=== PATIENT | female | born 1935 | race African-American/Black ===

== ENCOUNTER 2017-11-04 16:28 | Inpatient (IN) | payer MEDICARE ==
[2017-11-04] MEDS ORDERED: Ondansetron ODT 4 MG TAB PO PRN (19:41)
[2017-11-04] MEDS ORDERED: Bisacodyl 5 MG TAB PO PRN (19:41)
[2017-11-04] MEDS ORDERED: Senokot 8.6 MG TAB PO PRN (19:41)
[2017-11-04] MEDS ORDERED: Albuterol Sulfate 1.25 MG/3 ML NEB NEB PRN (19:44)
[2017-11-04] MEDS: Docusate 100 MG CAP PO SCH (22:07)
[2017-11-04] MEDS: Latanoprost 0.005% Ophth Soln 2.5 ml Bottle EA EYE SCH (22:07)
[2017-11-04] MEDS: Amlodipine 5 MG TAB PO SCH (22:08)
[2017-11-04] MEDS: Famotidine 20 MG TAB PO SCH (22:08)
[2017-11-04] MEDS: Atorvastatin Calcium 10 MG TAB PO SCH (22:08)
[2017-11-04] MEDS: Primidone 50 MG TAB PO SCH (22:09)
[2017-11-05 02:26] LABS: Bilirubin Negative (Negative); Blood, Urine Large (Negative); Clarity Slightly Cloudy (Clear); Glucose, Urine (Dipstick) Negative (Negative); Leukocyte Small (Negative); Nitrite Negative (Negative); Protein, Urine (Dipstick) 30 mg/dL (Neg-Trace); Urobilinogen 0.2 mg/dL (0.2-1.0)
[2017-11-05 02:31] LABS: RBC/HPF 21-50 HPF (0-3)
[2017-11-05 02:32] LABS: Bacteria/HPF 2+ HPF (None Seen); Squamous Epithelial None Seen HPF (0-3)
[2017-11-05 05:39] LABS: Hemoglobin 8.1 g/dL (12.0-16.0); Platelet Count 332 thou/uL (130-400)
[2017-11-05] MEDS ORDERED: Enoxaparin Sodium 40 MG/0.4 ML SYRINGE SC SCH (09:00)
[2017-11-05] MEDS: Furosemide 40 MG TAB PO SCH (09:27)
[2017-11-05] MEDS: Docusate 100 MG CAP PO SCH ×2 (09:27→20:49)
[2017-11-05] MEDS: Primidone 50 MG TAB PO SCH ×3 (09:28→20:52)
[2017-11-05] MEDS: Allopurinol 100 MG TAB PO SCH (09:28)
[2017-11-05] MEDS: Carvedilol 25 MG TAB PO SCH ×2 (09:29→18:42)
[2017-11-05] MEDS: DULoxetine 30 MG CAP PO SCH (09:29)
[2017-11-05] MEDS: Folic Acid 1 MG TAB PO SCH (09:29)
[2017-11-05] MEDS: Aspirin 325 mg Enteric Coated Tablet PO SCH (09:29)
[2017-11-05] MEDS: Famotidine 20 MG TAB PO SCH ×2 (09:29→20:50)
[2017-11-05] MEDS: Cyanocobalamin (Vitamin B-12) 1,000 MCG TAB PO SCH (09:29)
[2017-11-05 12:08] LABS: Iron 51 ug/dL (50-170); Iron Binding Capacity, Total 156 mcg/dL (265-497)
[2017-11-05 12:10] LABS: Reticulocyte Count 6.5 % (0.5-1.5)
[2017-11-05] MEDS: Atorvastatin Calcium 10 MG TAB PO SCH (20:50)
[2017-11-05] MEDS: Latanoprost 0.005% Ophth Soln 2.5 ml Bottle EA EYE SCH (20:51)
[2017-11-05] MEDS: Amlodipine 5 MG TAB PO SCH (20:51)
[2017-11-06 06:07] LABS: Hemoglobin 8.2 g/dL (12.0-16.0); Platelet Count 316 thou/uL (130-400)
--- NOTE | 2017-11-06 09:08 | RAD ---
PORTABLE CHEST 1 VIEW: Date: 11/06/17 Time: 0749 hours HISTORY: Pneumonia. FINDINGS/IMPRESSION: Comparison made with exam of 10/22/17. The heart size is enlarged. Left-sided upper extremity PICC line has been placed. Feeding tube has be en removed in the interim. Bibasilar infiltrates are noted. No pneumothoraces or large effusions are seen. There are postop changes of right rotator cuff repair. POS: [facility]
[2017-11-06] MEDS: Ferrous Sulfate 325 MG TAB PO SCH (09:27)
[2017-11-06] MEDS: DULoxetine 30 MG CAP PO SCH (09:27)
[2017-11-06] MEDS: Carvedilol 25 MG TAB PO SCH ×2 (09:31→18:39)
[2017-11-06] MEDS: Docusate 100 MG CAP PO SCH ×2 (09:32→21:10)
[2017-11-06] MEDS: Famotidine 20 MG TAB PO SCH ×2 (09:32→21:18)
[2017-11-06] MEDS: Cyanocobalamin (Vitamin B-12) 1,000 MCG TAB PO SCH (09:32)
[2017-11-06] MEDS: Allopurinol 100 MG TAB PO SCH (09:32)
[2017-11-06] MEDS: Aspirin 325 mg Enteric Coated Tablet PO SCH (09:32)
[2017-11-06] MEDS: Furosemide 40 MG TAB PO SCH (09:32)
[2017-11-06] MEDS: Folic Acid 1 MG TAB PO SCH (09:32)
[2017-11-06] MEDS: Enoxaparin Sodium 40 MG/0.4 ML SYRINGE SC SCH ×2 (10:33→11:53)
[2017-11-06] MEDS ORDERED: Minoxidil 2.5 MG TAB PO SCH (11:00)
[2017-11-06] MEDS: Atorvastatin Calcium 10 MG TAB PO SCH (21:10)
[2017-11-06] MEDS: Amlodipine 5 MG TAB PO SCH (21:10)
[2017-11-06] MEDS: Latanoprost 0.005% Ophth Soln 2.5 ml Bottle EA EYE SCH (21:18)
[2017-11-07] MEDS ORDERED: Enoxaparin Sodium 40 MG/0.4 ML SYRINGE SC SCH (09:00)
[2017-11-07] MEDS ORDERED: Enoxaparin Sodium 100 MG/ML SYRINGE SC SCH (09:00)
[2017-11-07] MEDS: Famotidine 20 MG TAB PO SCH ×2 (10:01→21:21)
[2017-11-07] MEDS: Allopurinol 100 MG TAB PO SCH (10:02)
[2017-11-07] MEDS: Furosemide 40 MG TAB PO SCH (10:02)
[2017-11-07] MEDS: Aspirin 325 mg Enteric Coated Tablet PO SCH (10:02)
[2017-11-07] MEDS: Minoxidil 2.5 MG TAB PO SCH (10:03)
[2017-11-07] MEDS: Ferrous Sulfate 325 MG TAB PO SCH (10:03)
[2017-11-07] MEDS: DULoxetine 30 MG CAP PO SCH (10:04)
[2017-11-07] MEDS: Cyanocobalamin (Vitamin B-12) 1,000 MCG TAB PO SCH (10:04)
[2017-11-07] MEDS: Carvedilol 25 MG TAB PO SCH ×2 (10:05→17:50)
[2017-11-07] MEDS: Docusate 100 MG CAP PO SCH ×2 (10:05→21:20)
[2017-11-07] MEDS: Folic Acid 1 MG TAB PO SCH (10:05)
[2017-11-07] MEDS: cloNIDine 0.1 MG TAB PO PRN (17:50)
[2017-11-07] MEDS: Amlodipine 5 MG TAB PO SCH (21:20)
[2017-11-07] MEDS: Acetaminophen 325 MG TAB PO PRN (21:20)
[2017-11-07] MEDS: Latanoprost 0.005% Ophth Soln 2.5 ml Bottle EA EYE SCH (21:21)
[2017-11-07] MEDS: Atorvastatin Calcium 10 MG TAB PO SCH (21:21)
[2017-11-08 06:22] LABS: Hemoglobin 8.3 g/dL (12.0-16.0); Platelet Count 304 thou/uL (130-400)
[2017-11-08] MEDS: Allopurinol 100 MG TAB PO SCH (08:16)
[2017-11-08] MEDS: Acetaminophen 325 MG TAB PO PRN (08:16)
[2017-11-08] MEDS: Cyanocobalamin (Vitamin B-12) 1,000 MCG TAB PO SCH (08:17)
[2017-11-08] MEDS: Ferrous Sulfate 325 MG TAB PO SCH (08:17)
[2017-11-08] MEDS: Aspirin 325 mg Enteric Coated Tablet PO SCH (08:17)
[2017-11-08] MEDS: Folic Acid 1 MG TAB PO SCH (08:18)
[2017-11-08] MEDS: Minoxidil 2.5 MG TAB PO SCH (08:18)
[2017-11-08] MEDS: Famotidine 20 MG TAB PO SCH ×2 (08:18→20:40)
[2017-11-08] MEDS: Furosemide 40 MG TAB PO SCH (08:18)
[2017-11-08] MEDS: DULoxetine 30 MG CAP PO SCH (08:19)
[2017-11-08] MEDS: Docusate 100 MG CAP PO SCH ×2 (08:19→20:40)
[2017-11-08] MEDS: Enoxaparin Sodium 100 MG/ML SYRINGE SC SCH (08:23)
[2017-11-08] MEDS: Carvedilol 25 MG TAB PO SCH ×2 (08:27→17:51)
[2017-11-08] MEDS: Atorvastatin Calcium 10 MG TAB PO SCH (20:40)
[2017-11-08] MEDS: Amlodipine 5 MG TAB PO SCH (20:40)
[2017-11-08] MEDS: Latanoprost 0.005% Ophth Soln 2.5 ml Bottle EA EYE SCH (20:44)
[2017-11-09] MEDS: Aspirin 325 mg Enteric Coated Tablet PO SCH (07:50)
[2017-11-09] MEDS: Docusate 100 MG CAP PO SCH ×2 (07:50→20:58)
[2017-11-09] MEDS: Folic Acid 1 MG TAB PO SCH (07:51)
[2017-11-09] MEDS: Allopurinol 100 MG TAB PO SCH (07:51)
[2017-11-09] MEDS: Ferrous Sulfate 325 MG TAB PO SCH (07:51)
[2017-11-09] MEDS: Cyanocobalamin (Vitamin B-12) 1,000 MCG TAB PO SCH (07:51)
[2017-11-09] MEDS: DULoxetine 30 MG CAP PO SCH (07:52)
[2017-11-09] MEDS: Minoxidil 2.5 MG TAB PO SCH (07:53)
[2017-11-09] MEDS: Enoxaparin Sodium 100 MG/ML SYRINGE SC SCH (07:53)
[2017-11-09] MEDS: Carvedilol 25 MG TAB PO SCH ×2 (07:53→18:03)
[2017-11-09] MEDS: Furosemide 40 MG TAB PO SCH (07:53)
[2017-11-09] MEDS: Famotidine 20 MG TAB PO SCH ×2 (07:53→20:58)
[2017-11-09] MEDS: Latanoprost 0.005% Ophth Soln 2.5 ml Bottle EA EYE SCH (20:53)
[2017-11-09] MEDS: Amlodipine 5 MG TAB PO SCH (20:54)
[2017-11-09] MEDS: Atorvastatin Calcium 10 MG TAB PO SCH (20:58)
[2017-11-10 06:22] LABS: #Basophils 0.1 thou/uL (0.0-0.2); #Eosinphils 0.2 thou/uL (0.0-0.7); #Lymphocytes 1.8 thou/uL (1.20-3.40); #Monocytes 0.6 thou/uL (0.11-0.59); #Neutrophils 3.2 thou/uL (1.40-6.50); %Basophils 2.5 % (0.0-1.0); %Eosinophils 2.5 % (0.0-10.0); %Lymphocytes 30.3 % (21.0-51.0); %Monocytes 9.9 % (0.0-10.0); %Neutrophils 54.8 % (42.0-75.0); Hemoglobin 8.6 g/dL (12.0-16.0); Mean Corpuscular HGB CONC 31.4 g/dL (32.0-36.0); Mean Corpuscular Hemoglobin 32.8 pg (27.0-31.0); Mean Platelet Volume 5.9 fL (7.4-10.4); Platelet Count 231 thou/uL (130-400); RBC Distribution Width 16.7 % (11.5-14.5); Red Blood Cell (RBC) Count 2.61 mill/uL (4.20-5.40); White Blood Cell (WBC) Count 5.9 thou/uL (4.8-10.8)
[2017-11-10 06:33] LABS: ALT (SGPT) 22 U/L (8-55); AST (SGOT) 23 U/L (5-34); Albumin 2.6 g/dL (3.4-4.8); Alkaline Phosphatase 118 U/L (40-150); Anion Gap 14 mmol/L (10-20); BUN (Urea Nitrogen) 17 mg/dL (9.8-20.1); Bilirubin, Total 0.3 mg/dL (0.2-1.2); Calc. Creatinine Clearance 64 mL/min (70-130); Calcium 9.2 mg/dL (7.8-10.44); Carbon Dioxide 30 mmol/L (23-31); Chloride 101 mmol/L (98-107); Estimated GFR-MDRD 50; Glucose 96 mg/dL (83-110); Protein, Total 5.6 g/dL (6.0-8.3); Sodium 141 mmol/L (136-145)
[2017-11-10] MEDS: Allopurinol 100 MG TAB PO SCH (09:07)
[2017-11-10] MEDS: Docusate 100 MG CAP PO SCH ×2 (09:07→22:29)
[2017-11-10] MEDS: Carvedilol 25 MG TAB PO SCH ×2 (09:08→17:46)
[2017-11-10] MEDS: Famotidine 20 MG TAB PO SCH ×2 (09:08→22:34)
[2017-11-10] MEDS: Ferrous Sulfate 325 MG TAB PO SCH (09:08)
[2017-11-10] MEDS: Aspirin 325 mg Enteric Coated Tablet PO SCH (09:08)
[2017-11-10] MEDS: Cyanocobalamin (Vitamin B-12) 1,000 MCG TAB PO SCH (09:08)
[2017-11-10] MEDS: Minoxidil 2.5 MG TAB PO SCH (09:08)
[2017-11-10] MEDS: DULoxetine 30 MG CAP PO SCH (09:08)
[2017-11-10] MEDS: Furosemide 40 MG TAB PO SCH (09:09)
[2017-11-10] MEDS: Enoxaparin Sodium 100 MG/ML SYRINGE SC SCH (09:09)
[2017-11-10] MEDS: Folic Acid 1 MG TAB PO SCH (09:09)
--- NOTE | 2017-11-10 11:06 | RAD ---
CHEST 1 VIEW: Date: 11/10/17 HISTORY: Pneumonia. COMPARISON: Chest 1 view dated 11/06/17. FINDINGS: Mild interval improvement of the lower lobe air space opacities. Central venous catheter tip is uncha nged and in good position. No pneumothorax. Suture anchor present in right humeral head. IMPRESSION: Improving air space opacities. POS: [facility]
[2017-11-10] MEDS: Amlodipine 5 MG TAB PO SCH (22:29)
[2017-11-10] MEDS: Latanoprost 0.005% Ophth Soln 2.5 ml Bottle EA EYE SCH (22:34)
[2017-11-10] MEDS: Atorvastatin Calcium 10 MG TAB PO SCH (22:34)
[2017-11-11] MEDS: cloNIDine 0.1 MG TAB PO PRN (06:29)
[2017-11-11] MEDS: Enoxaparin Sodium 100 MG/ML SYRINGE SC SCH (08:42)
[2017-11-11] MEDS: Ferrous Sulfate 325 MG TAB PO SCH (08:46)
[2017-11-11] MEDS: Docusate 100 MG CAP PO SCH ×2 (08:47→20:32)
[2017-11-11] MEDS: Aspirin 325 mg Enteric Coated Tablet PO SCH (08:47)
[2017-11-11] MEDS: Carvedilol 25 MG TAB PO SCH ×2 (08:47→17:01)
[2017-11-11] MEDS: DULoxetine 30 MG CAP PO SCH (08:47)
[2017-11-11] MEDS: Allopurinol 100 MG TAB PO SCH (08:48)
[2017-11-11] MEDS: Cyanocobalamin (Vitamin B-12) 1,000 MCG TAB PO SCH (08:48)
[2017-11-11] MEDS: Folic Acid 1 MG TAB PO SCH (08:49)
[2017-11-11] MEDS: Famotidine 20 MG TAB PO SCH ×2 (08:49→20:32)
[2017-11-11] MEDS: Minoxidil 2.5 MG TAB PO SCH (08:49)
[2017-11-11] MEDS: Furosemide 40 MG TAB PO SCH (08:49)
[2017-11-11] MEDS: Acetaminophen 325 MG TAB PO PRN (08:53)
[2017-11-11] MEDS: Latanoprost 0.005% Ophth Soln 2.5 ml Bottle EA EYE SCH (20:32)
[2017-11-11] MEDS: Atorvastatin Calcium 10 MG TAB PO SCH (20:32)
[2017-11-11] MEDS: Amlodipine 5 MG TAB PO SCH (20:32)
--- NOTE | 2017-11-11 22:25 | HP ---
DATE OF ADMISSION: 11/04/2017 REASON FOR TRANSFER: To [facility] was due to deconditioning with recent meta bolic encephalopathy. BRIEF SUMMARY OF HISTORY AND PHYSICAL: The patient is an 82-year-old white female who was initially admitted on 10/03/2017 to [facility] with decreased ability to ambulate, recur rent falls and confusion with dysarthria, slurred speech, and incoherence. In the emergency room, an initial CT scan, as well as further workup including MRI, did not show any acute findings. The kike ent had a labile and difficult to control hypertension, is concerned that she may have had a TIA, but during her hospital stay, she continued to progress with generalized diffuse weakness. Neurology co nsult was obtained and she was deemed to have encephalopathy, likely metabolic in nature, possibly re lated to an increased dose of primidone for tremors. Primidone was discontinued. The patient had a very poor p.o. intake and a Dobhoff tube was placed. There was a question about a urinary tract infe ction and/or pneumonia. She was initially treated for these illnesses empirically, but then stopped when she appeared to have no signs of infection. By the time the patient was stable enough to be dis charged from the hospital, she was extremely weak, unable to get out of bed, and very poor p.o. intak e. It was deemed appropriate to transfer her to [facility] for physical thera py and occupational therapy and increase her p.o. intake. PAST MEDICAL HISTORY: 1. Recurrent urinary tract infections. Currently, she has a Escamilla catheter in place due to her watson mbulatory status. 2. Essential tremor. 3. Fibromyalgia. 4. Osteoarthritis. 5. Morbid obesity. 6. Hypertension. 7. History of sleep apnea. The patient has refused CPAP machine. 8. History of progressive renal insufficiency. 9. History of progressive deconditioning. 10. History of prior cerebrovascular accident. PAST SURGICAL HISTORY: Hysterectomy, cholecystectomy, bilateral knee replacements, right shoulder larsen rgery. For full history and physical, see recent history and physical on her recent admission. REVIEW OF SYSTEMS: At this time, the patient reports some increase in her appetite. Her confusion h as significantly improved. She denies any true depression. No significant cough reported. She does report shortness of breath with activity, but not at rest, no URI-like symptoms. No visual changes. The patient reports some occasional nausea and upset stomach without emesis, nor diarrhea. She rep orts her bowel movements have been normal. The patient reports diffuse edema of her extremities sinc e her hospitalization. No ulcers, no lesions reported by the patient. PHYSICAL EXAMINATION: VITAL SIGNS: Blood pressure is 162/68, respiratory rate was 16, pulse was 82. HEENT: Oropharynx, mucous membranes were moist. NECK: Obese, supple. CHEST: Had some faint rhonchi at the bases bilaterally. HEART: Regular rate and rhythm without occasional ectopic beats. ABDOMEN: Obese, but soft. Bowel sounds hypoactive but present in all 4 quadrants. No masses were p alpated. EXTREMITIES: Showed diffuse edema of the hands and feet bilaterally. A PICC line was in place in th e left arm. ASSESSMENT AND PLAN: 1. Severe deconditioning. The patient had a 1-month hospitalization, has been nonambulatory during that time. We will start on deep venous thrombosis prophylaxis with both mechanical as well as pharm acotherapy with Lovenox due to a high risk for deep venous thrombosis. We will start the patient wit h physical therapy and occupational therapy. She will likely need a prolonged stay due to her severe deconditioning. 2. Congestive heart failure. The patient had an echocardiogram with recent hospitalization with an ejection fraction of 55% with diastolic dysfunction. She also had a workup for possible renal artery stenosis which showed no obvious significant renal artery stenosis. We will treat her with continue d Lasix as previously prescribed and follow her daily weights. 3. Hypertension. She had a history of labile hypertension. We will continue her on current medicat ions plus clonidine for p.r.n. elevated blood pressure. 4. Poor appetite. The patient apparently is improving in her appetite. We will add high-calorie sh akes as needed. 5. DISPOSITION: The patient will likely need several weeks of therapy [facility] due to her morbid obesity. At this time, we will keep the Escamilla catheter in place and may disconti nue once she is more ambulatory.
[2017-11-12] MEDS: Enoxaparin Sodium 100 MG/ML SYRINGE SC SCH (08:17)
[2017-11-12] MEDS: Cyanocobalamin (Vitamin B-12) 1,000 MCG TAB PO SCH (08:21)
[2017-11-12] MEDS: Ferrous Sulfate 325 MG TAB PO SCH (08:21)
[2017-11-12] MEDS: Docusate 100 MG CAP PO SCH ×2 (08:21→21:13)
[2017-11-12] MEDS: Carvedilol 25 MG TAB PO SCH ×2 (08:21→16:49)
[2017-11-12] MEDS: Allopurinol 100 MG TAB PO SCH (08:22)
[2017-11-12] MEDS: Aspirin 325 mg Enteric Coated Tablet PO SCH (08:22)
[2017-11-12] MEDS: Folic Acid 1 MG TAB PO SCH (08:23)
[2017-11-12] MEDS: Famotidine 20 MG TAB PO SCH ×2 (08:23→21:12)
[2017-11-12] MEDS: Minoxidil 2.5 MG TAB PO SCH (08:23)
[2017-11-12] MEDS: DULoxetine 30 MG CAP PO SCH (08:24)
[2017-11-12] MEDS: Furosemide 40 MG TAB PO SCH (08:24)
[2017-11-12 09:27] LABS: Hemoglobin 9.5 g/dL (12.0-16.0); Platelet Count 219 thou/uL (130-400)
[2017-11-12] MEDS: Atorvastatin Calcium 10 MG TAB PO SCH (21:12)
[2017-11-12] MEDS: Latanoprost 0.005% Ophth Soln 2.5 ml Bottle EA EYE SCH (21:15)
[2017-11-12] MEDS: Amlodipine 5 MG TAB PO SCH (22:19)
[2017-11-13] MEDS: Enoxaparin Sodium 100 MG/ML SYRINGE SC SCH (09:19)
[2017-11-13] MEDS: DULoxetine 30 MG CAP PO SCH (09:24)
[2017-11-13] MEDS: Allopurinol 100 MG TAB PO SCH (09:25)
[2017-11-13] MEDS: Docusate 100 MG CAP PO SCH ×2 (09:25→21:14)
[2017-11-13] MEDS: Ferrous Sulfate 325 MG TAB PO SCH (09:25)
[2017-11-13] MEDS: Cyanocobalamin (Vitamin B-12) 1,000 MCG TAB PO SCH (09:26)
[2017-11-13] MEDS: Furosemide 40 MG TAB PO SCH (09:26)
[2017-11-13] MEDS: Aspirin 325 mg Enteric Coated Tablet PO SCH (09:26)
[2017-11-13] MEDS: Minoxidil 2.5 MG TAB PO SCH (09:26)
[2017-11-13] MEDS: Folic Acid 1 MG TAB PO SCH (09:27)
[2017-11-13] MEDS: Carvedilol 25 MG TAB PO SCH ×2 (09:27→16:50)
[2017-11-13] MEDS: Famotidine 20 MG TAB PO SCH ×2 (09:27→21:14)
[2017-11-13] MEDS: Acetaminophen 325 MG TAB PO PRN (13:32)
[2017-11-13] MEDS: Atorvastatin Calcium 10 MG TAB PO SCH (21:13)
[2017-11-13] MEDS: Amlodipine 5 MG TAB PO SCH (21:13)
[2017-11-13] MEDS: Latanoprost 0.005% Ophth Soln 2.5 ml Bottle EA EYE SCH (21:14)
[2017-11-14 05:17] LABS: Hemoglobin 8.8 g/dL (12.0-16.0); Platelet Count 51 thou/uL (130-400)
[2017-11-14 05:58] LABS: Platelet Count 137 thou/uL (130-400)
[2017-11-14] MEDS: Cyanocobalamin (Vitamin B-12) 1,000 MCG TAB PO SCH (10:01)
[2017-11-14] MEDS: Ferrous Sulfate 325 MG TAB PO SCH (10:01)
[2017-11-14] MEDS: Acetaminophen 325 MG TAB PO PRN ×2 (10:02→13:54)
[2017-11-14] MEDS: Allopurinol 100 MG TAB PO SCH (10:02)
[2017-11-14] MEDS: Docusate 100 MG CAP PO SCH ×2 (10:02→21:55)
[2017-11-14] MEDS: Folic Acid 1 MG TAB PO SCH (10:02)
[2017-11-14] MEDS: Famotidine 20 MG TAB PO SCH ×2 (10:02→21:54)
[2017-11-14] MEDS: Carvedilol 25 MG TAB PO SCH ×2 (10:02→17:47)
[2017-11-14] MEDS: Enoxaparin Sodium 100 MG/ML SYRINGE SC SCH (10:03)
[2017-11-14] MEDS: Aspirin 325 mg Enteric Coated Tablet PO SCH (10:03)
[2017-11-14] MEDS: Minoxidil 2.5 MG TAB PO SCH (10:03)
[2017-11-14] MEDS: DULoxetine 30 MG CAP PO SCH (10:03)
[2017-11-14] MEDS: Furosemide 40 MG TAB PO SCH (10:03)
[2017-11-14] MEDS ORDERED: Enoxaparin Sodium 100 MG/ML SYRINGE SC SCH (12:37)
[2017-11-14] MEDS: Vancomycin HCl 500 MG in Sodium Chloride 0.9% 100 ML IVPB SCH (13:26)
[2017-11-14] MEDS: Vancomycin HCl 750 MG in Sodium Chloride 0.9% 250 ML 250 ML IVPB SCH (13:26)
[2017-11-14] MEDS: traMADol HCl 50 MG TAB PO PRN (17:46)
[2017-11-14] MEDS ORDERED: Vancomycin HCl 1.25 GM in Sodium Chloride 0.9% 250 ML 250 ML IVPB SCH (21:00)
[2017-11-14] MEDS: Latanoprost 0.005% Ophth Soln 2.5 ml Bottle EA EYE SCH (21:54)
[2017-11-14] MEDS: Atorvastatin Calcium 10 MG TAB PO SCH (21:55)
[2017-11-14] MEDS: Amlodipine 5 MG TAB PO SCH (22:00)
[2017-11-15] MEDS: Vancomycin HCl 500 MG in Sodium Chloride 0.9% 100 ML IVPB SCH ×2 (01:07→13:23)
[2017-11-15] MEDS: Vancomycin HCl 750 MG in Sodium Chloride 0.9% 250 ML 250 ML IVPB SCH ×2 (01:08→13:23)
[2017-11-15] MEDS ORDERED: Furosemide 40 MG/4 ML VIAL ONE (09:23)
[2017-11-15] MEDS ORDERED: Furosemide 40 MG/4 ML VIAL SLOW IVP SCH (09:30)
[2017-11-15] MEDS: Furosemide 40 MG TAB PO SCH (09:42)
[2017-11-15] MEDS: Floranex Packet PO SCH (09:42)
[2017-11-15] MEDS: Folic Acid 1 MG TAB PO SCH (09:43)
[2017-11-15] MEDS: Aspirin 325 mg Enteric Coated Tablet PO SCH (09:43)
[2017-11-15] MEDS: Cyanocobalamin (Vitamin B-12) 1,000 MCG TAB PO SCH (09:43)
[2017-11-15] MEDS: DULoxetine 30 MG CAP PO SCH (09:44)
[2017-11-15] MEDS: Minoxidil 2.5 MG TAB PO SCH (09:44)
[2017-11-15] MEDS: Famotidine 20 MG TAB PO SCH ×2 (09:44→20:38)
[2017-11-15] MEDS: Allopurinol 100 MG TAB PO SCH (09:44)
[2017-11-15] MEDS: Ferrous Sulfate 325 MG TAB PO SCH (09:44)
[2017-11-15] MEDS: Carvedilol 25 MG TAB PO SCH ×2 (09:44→17:45)
[2017-11-15] MEDS: Docusate 100 MG CAP PO SCH ×2 (09:44→20:37)
[2017-11-15] MEDS: Acetaminophen 325 MG TAB PO PRN (09:49)
[2017-11-15] MEDS: Enoxaparin Sodium 40 MG/0.4 ML SYRINGE SC SCH (09:49)
[2017-11-15] MEDS: Amlodipine 5 MG TAB PO SCH (20:38)
[2017-11-15] MEDS: Atorvastatin Calcium 10 MG TAB PO SCH (20:38)
[2017-11-15] MEDS: Latanoprost 0.005% Ophth Soln 2.5 ml Bottle EA EYE SCH (20:39)
[2017-11-16] MEDS ORDERED: Vancomycin HCl 750 MG VIAL ONE (01:57)
[2017-11-16] MEDS: Vancomycin HCl 500 MG in Sodium Chloride 0.9% 100 ML IVPB SCH (02:05)
[2017-11-16] MEDS: Vancomycin HCl 750 MG in Sodium Chloride 0.9% 250 ML 250 ML IVPB SCH (02:06)
[2017-11-16 05:23] LABS: Platelet Count 154 thou/uL (130-400)
[2017-11-16] MEDS ORDERED: Furosemide 40 MG TAB PO SCH (09:00)
[2017-11-16] MEDS ORDERED: Furosemide 40 MG/4 ML VIAL SLOW IVP SCH (09:45)
[2017-11-16] MEDS: Floranex Packet PO SCH (10:30)
[2017-11-16] MEDS: DULoxetine 30 MG CAP PO SCH (10:30)
[2017-11-16] MEDS: Allopurinol 100 MG TAB PO SCH (10:30)
[2017-11-16] MEDS: Cyanocobalamin (Vitamin B-12) 1,000 MCG TAB PO SCH (10:30)
[2017-11-16] MEDS: Minoxidil 2.5 MG TAB PO SCH (10:31)
[2017-11-16] MEDS: Famotidine 20 MG TAB PO SCH ×2 (10:31→21:34)
[2017-11-16] MEDS: Acetaminophen 325 MG TAB PO PRN (10:31)
[2017-11-16] MEDS: Ferrous Sulfate 325 MG TAB PO SCH (10:32)
[2017-11-16] MEDS: Aspirin 325 mg Enteric Coated Tablet PO SCH (10:32)
[2017-11-16] MEDS: Docusate 100 MG CAP PO SCH ×2 (10:32→21:35)
[2017-11-16] MEDS: Folic Acid 1 MG TAB PO SCH (10:32)
[2017-11-16] MEDS: Enoxaparin Sodium 40 MG/0.4 ML SYRINGE SC SCH (10:32)
[2017-11-16] MEDS: Carvedilol 25 MG TAB PO SCH ×2 (10:32→17:18)
[2017-11-16] MEDS ORDERED: Vancomycin HCl 750 MG in Sodium Chloride 0.9% 250 ML 250 ML IVPB SCH (13:00)
[2017-11-16] MEDS ORDERED: Vancomycin HCl 1 GM in Sodium Chloride 0.9% 250 ML 250 ML IVPB SCH (14:00)
[2017-11-16] MEDS: Latanoprost 0.005% Ophth Soln 2.5 ml Bottle EA EYE SCH (21:34)
[2017-11-16] MEDS: Atorvastatin Calcium 10 MG TAB PO SCH (21:35)
[2017-11-16] MEDS: Amlodipine 5 MG TAB PO SCH (21:44)
[2017-11-17] MEDS ORDERED: Furosemide 40 MG TAB PO SCH ×2 (09:00→12:45)
[2017-11-17] MEDS: DULoxetine 30 MG CAP PO SCH (09:14)
[2017-11-17] MEDS: Enoxaparin Sodium 40 MG/0.4 ML SYRINGE SC SCH (09:14)
[2017-11-17] MEDS: Minoxidil 2.5 MG TAB PO SCH (09:14)
[2017-11-17] MEDS: Aspirin 325 mg Enteric Coated Tablet PO SCH (09:15)
[2017-11-17] MEDS: Allopurinol 100 MG TAB PO SCH (09:15)
[2017-11-17] MEDS: Cyanocobalamin (Vitamin B-12) 1,000 MCG TAB PO SCH (09:15)
[2017-11-17] MEDS: Ferrous Sulfate 325 MG TAB PO SCH (09:15)
[2017-11-17] MEDS: Docusate 100 MG CAP PO SCH ×2 (09:15→20:18)
[2017-11-17] MEDS: Folic Acid 1 MG TAB PO SCH (09:15)
[2017-11-17] MEDS: Famotidine 20 MG TAB PO SCH ×2 (09:16→20:18)
[2017-11-17] MEDS: Carvedilol 25 MG TAB PO SCH ×2 (09:16→18:03)
[2017-11-17] MEDS: Floranex Packet PO SCH (09:16)
[2017-11-17] MEDS ORDERED: Bisacodyl 10 MG SUPP PR PRN (13:33)
[2017-11-17] MEDS ORDERED: Milk Of Magnesia 30 ML UDCUP PO PRN (13:34)
[2017-11-17] MEDS: Latanoprost 0.005% Ophth Soln 2.5 ml Bottle EA EYE SCH (20:17)
[2017-11-17] MEDS: Amlodipine 5 MG TAB PO SCH (20:18)
[2017-11-17] MEDS: Atorvastatin Calcium 10 MG TAB PO SCH (20:18)
[2017-11-18 05:24] LABS: Hemoglobin 8.2 g/dL (12.0-16.0); Platelet Count 163 thou/uL (130-400)
[2017-11-18] MEDS: Cyanocobalamin (Vitamin B-12) 1,000 MCG TAB PO SCH (10:03)
[2017-11-18] MEDS: Carvedilol 25 MG TAB PO SCH ×2 (10:03→17:47)
[2017-11-18] MEDS: traMADol HCl 50 MG TAB PO PRN (10:04)
[2017-11-18] MEDS: Aspirin 325 mg Enteric Coated Tablet PO SCH (10:04)
[2017-11-18] MEDS: Allopurinol 100 MG TAB PO SCH (10:04)
[2017-11-18] MEDS: Ferrous Sulfate 325 MG TAB PO SCH (10:05)
[2017-11-18] MEDS: DULoxetine 30 MG CAP PO SCH (10:05)
[2017-11-18] MEDS: Docusate 100 MG CAP PO SCH ×2 (10:05→21:46)
[2017-11-18] MEDS: Famotidine 20 MG TAB PO SCH ×2 (10:05→21:46)
[2017-11-18] MEDS: Furosemide 40 MG TAB PO SCH (10:05)
[2017-11-18] MEDS: Folic Acid 1 MG TAB PO SCH (10:05)
[2017-11-18] MEDS: Minoxidil 2.5 MG TAB PO SCH (10:06)
[2017-11-18] MEDS: Floranex Packet PO SCH (10:06)
[2017-11-18] MEDS: Enoxaparin Sodium 40 MG/0.4 ML SYRINGE SC SCH (10:17)
[2017-11-18] MEDS: Atorvastatin Calcium 10 MG TAB PO SCH (21:46)
[2017-11-18] MEDS: Latanoprost 0.005% Ophth Soln 2.5 ml Bottle EA EYE SCH (21:46)
[2017-11-18] MEDS: Amlodipine 5 MG TAB PO SCH (21:46)
[2017-11-19] MEDS: Enoxaparin Sodium 40 MG/0.4 ML SYRINGE SC SCH (09:44)
[2017-11-19] MEDS: Floranex Packet PO SCH (09:45)
[2017-11-19] MEDS: Furosemide 40 MG TAB PO SCH (09:46)
[2017-11-19] MEDS: Aspirin 325 mg Enteric Coated Tablet PO SCH (09:47)
[2017-11-19] MEDS: Docusate 100 MG CAP PO SCH ×2 (09:47→22:02)
[2017-11-19] MEDS: Allopurinol 100 MG TAB PO SCH (09:47)
[2017-11-19] MEDS: DULoxetine 30 MG CAP PO SCH (09:47)
[2017-11-19] MEDS: Carvedilol 25 MG TAB PO SCH ×2 (09:48→17:30)
[2017-11-19] MEDS: Ferrous Sulfate 325 MG TAB PO SCH (09:48)
[2017-11-19] MEDS: Cyanocobalamin (Vitamin B-12) 1,000 MCG TAB PO SCH (09:48)
[2017-11-19] MEDS: Famotidine 20 MG TAB PO SCH ×2 (09:48→22:02)
[2017-11-19] MEDS: Folic Acid 1 MG TAB PO SCH (09:48)
[2017-11-19] MEDS: Minoxidil 2.5 MG TAB PO SCH (09:48)
[2017-11-19] MEDS: Latanoprost 0.005% Ophth Soln 2.5 ml Bottle EA EYE SCH (22:01)
[2017-11-19] MEDS: Amlodipine 5 MG TAB PO SCH (22:02)
[2017-11-19] MEDS: Atorvastatin Calcium 10 MG TAB PO SCH (22:02)
[2017-11-20 07:23] LABS: Hemoglobin 8.7 g/dL (12.0-16.0); Platelet Count 193 thou/uL (130-400)
[2017-11-20] MEDS: Folic Acid 1 MG TAB PO SCH (08:19)
[2017-11-20] MEDS: Docusate 100 MG CAP PO SCH ×2 (08:19→20:23)
[2017-11-20] MEDS: Enoxaparin Sodium 40 MG/0.4 ML SYRINGE SC SCH (08:19)
[2017-11-20] MEDS: DULoxetine 30 MG CAP PO SCH (08:19)
[2017-11-20] MEDS: Famotidine 20 MG TAB PO SCH ×2 (08:20→20:23)
[2017-11-20] MEDS: Furosemide 40 MG TAB PO SCH (08:20)
[2017-11-20] MEDS: Ferrous Sulfate 325 MG TAB PO SCH (08:20)
[2017-11-20] MEDS: Allopurinol 100 MG TAB PO SCH (08:20)
[2017-11-20] MEDS: Carvedilol 25 MG TAB PO SCH ×2 (08:21→17:51)
[2017-11-20] MEDS: Minoxidil 2.5 MG TAB PO SCH (08:21)
[2017-11-20] MEDS: Floranex Packet PO SCH (08:21)
[2017-11-20] MEDS: Cyanocobalamin (Vitamin B-12) 1,000 MCG TAB PO SCH (08:21)
[2017-11-20] MEDS: Aspirin 325 mg Enteric Coated Tablet PO SCH (08:21)
[2017-11-20] MEDS: traMADol HCl 50 MG TAB PO PRN (09:30)
[2017-11-20] MEDS: Latanoprost 0.005% Ophth Soln 2.5 ml Bottle EA EYE SCH (20:22)
[2017-11-20] MEDS: Amlodipine 5 MG TAB PO SCH (20:22)
[2017-11-20] MEDS: Atorvastatin Calcium 10 MG TAB PO SCH (20:23)
[2017-11-21] MEDS: Cyanocobalamin (Vitamin B-12) 1,000 MCG TAB PO SCH (09:55)
[2017-11-21] MEDS: Famotidine 20 MG TAB PO SCH ×2 (09:56→21:08)
[2017-11-21] MEDS: Furosemide 40 MG TAB PO SCH (09:56)
[2017-11-21] MEDS: Allopurinol 100 MG TAB PO SCH (09:56)
[2017-11-21] MEDS: DULoxetine 30 MG CAP PO SCH (09:57)
[2017-11-21] MEDS: Docusate 100 MG CAP PO SCH ×2 (09:58→21:08)
[2017-11-21] MEDS: Ferrous Sulfate 325 MG TAB PO SCH (09:58)
[2017-11-21] MEDS: Folic Acid 1 MG TAB PO SCH (09:58)
[2017-11-21] MEDS: Aspirin 325 mg Enteric Coated Tablet PO SCH (09:58)
[2017-11-21] MEDS: Carvedilol 25 MG TAB PO SCH ×2 (09:59→18:23)
[2017-11-21] MEDS: Floranex Packet PO SCH (09:59)
[2017-11-21] MEDS: Minoxidil 2.5 MG TAB PO SCH (09:59)
[2017-11-21] MEDS: Enoxaparin Sodium 40 MG/0.4 ML SYRINGE SC SCH (10:00)
[2017-11-21] MEDS: traMADol HCl 50 MG TAB PO PRN (11:21)
[2017-11-21] MEDS: Amlodipine 5 MG TAB PO SCH (21:07)
[2017-11-21] MEDS: Atorvastatin Calcium 10 MG TAB PO SCH (21:08)
[2017-11-21] MEDS: Latanoprost 0.005% Ophth Soln 2.5 ml Bottle EA EYE SCH (21:08)
[2017-11-22 06:32] LABS: Hemoglobin 8.5 g/dL (12.0-16.0); Platelet Count 208 thou/uL (130-400)
[2017-11-22] MEDS: Furosemide 40 MG TAB PO SCH (08:59)
[2017-11-22] MEDS: Folic Acid 1 MG TAB PO SCH (09:00)
[2017-11-22] MEDS: Aspirin 325 mg Enteric Coated Tablet PO SCH (09:00)
[2017-11-22] MEDS: Famotidine 20 MG TAB PO SCH ×2 (09:00→22:48)
[2017-11-22] MEDS: Ferrous Sulfate 325 MG TAB PO SCH (09:00)
[2017-11-22] MEDS: Allopurinol 100 MG TAB PO SCH (09:01)
[2017-11-22] MEDS: Carvedilol 25 MG TAB PO SCH ×2 (09:01→16:37)
[2017-11-22] MEDS: DULoxetine 30 MG CAP PO SCH (09:01)
[2017-11-22] MEDS: Docusate 100 MG CAP PO SCH ×2 (09:02→22:48)
[2017-11-22] MEDS: Cyanocobalamin (Vitamin B-12) 1,000 MCG TAB PO SCH (09:02)
[2017-11-22] MEDS: Minoxidil 2.5 MG TAB PO SCH (09:02)
[2017-11-22] MEDS: Floranex Packet PO SCH (09:02)
[2017-11-22] MEDS: Enoxaparin Sodium 40 MG/0.4 ML SYRINGE SC SCH (09:03)
[2017-11-22] MEDS: Latanoprost 0.005% Ophth Soln 2.5 ml Bottle EA EYE SCH (22:46)
[2017-11-22] MEDS: Amlodipine 5 MG TAB PO SCH (22:47)
[2017-11-22] MEDS: Atorvastatin Calcium 10 MG TAB PO SCH (22:47)
[2017-11-23] MEDS: Furosemide 40 MG TAB PO SCH (08:10)
[2017-11-23] MEDS: Allopurinol 100 MG TAB PO SCH (08:11)
[2017-11-23] MEDS: DULoxetine 30 MG CAP PO SCH (08:11)
[2017-11-23] MEDS: Docusate 100 MG CAP PO SCH ×2 (08:11→21:38)
[2017-11-23] MEDS: Famotidine 20 MG TAB PO SCH ×2 (08:11→21:39)
[2017-11-23] MEDS: Folic Acid 1 MG TAB PO SCH (08:12)
[2017-11-23] MEDS: Carvedilol 25 MG TAB PO SCH ×2 (08:12→16:44)
[2017-11-23] MEDS: Aspirin 325 mg Enteric Coated Tablet PO SCH (08:12)
[2017-11-23] MEDS: Floranex Packet PO SCH (08:12)
[2017-11-23] MEDS: Minoxidil 2.5 MG TAB PO SCH (08:12)
[2017-11-23] MEDS: Cyanocobalamin (Vitamin B-12) 1,000 MCG TAB PO SCH (08:12)
[2017-11-23] MEDS: Ferrous Sulfate 325 MG TAB PO SCH (08:12)
[2017-11-23] MEDS: Enoxaparin Sodium 40 MG/0.4 ML SYRINGE SC SCH (08:25)
[2017-11-23] MEDS: traMADol HCl 50 MG TAB PO PRN ×2 (08:33→14:06)
[2017-11-23] MEDS ORDERED: Furosemide 40 MG TAB PO SCH (12:30)
[2017-11-23] MEDS: Amlodipine 5 MG TAB PO SCH (21:39)
[2017-11-23] MEDS: Latanoprost 0.005% Ophth Soln 2.5 ml Bottle EA EYE SCH (21:39)
[2017-11-23] MEDS: Atorvastatin Calcium 10 MG TAB PO SCH (21:39)
[2017-11-24 06:30] VITALS: BMI 42.4
[2017-11-24 07:29] LABS: Hemoglobin 9.4 g/dL (12.0-16.0); Platelet Count 267 thou/uL (130-400)
[2017-11-24] MEDS: Carvedilol 25 MG TAB PO SCH ×2 (09:12→17:50)
[2017-11-24] MEDS: Famotidine 20 MG TAB PO SCH ×2 (09:13→21:22)
[2017-11-24] MEDS: Docusate 100 MG CAP PO SCH ×2 (09:13→21:22)
[2017-11-24] MEDS: Furosemide 40 MG TAB PO SCH (09:13)
[2017-11-24] MEDS: DULoxetine 30 MG CAP PO SCH (09:14)
[2017-11-24] MEDS: Aspirin 325 mg Enteric Coated Tablet PO SCH (09:14)
[2017-11-24] MEDS: Allopurinol 100 MG TAB PO SCH (09:15)
[2017-11-24] MEDS: Ferrous Sulfate 325 MG TAB PO SCH (09:15)
[2017-11-24] MEDS: Enoxaparin Sodium 40 MG/0.4 ML SYRINGE SC SCH (09:16)
[2017-11-24] MEDS: Cyanocobalamin (Vitamin B-12) 1,000 MCG TAB PO SCH (09:16)
[2017-11-24] MEDS: Floranex Packet PO SCH (09:16)
[2017-11-24] MEDS: Folic Acid 1 MG TAB PO SCH (09:16)
[2017-11-24] MEDS: Minoxidil 2.5 MG TAB PO SCH (09:16)
[2017-11-24] MEDS: traMADol HCl 50 MG TAB PO PRN (09:17)
[2017-11-24] MEDS ORDERED: traMADol HCl 50 MG TAB PO PRN (19:50)
[2017-11-24] MEDS: Latanoprost 0.005% Ophth Soln 2.5 ml Bottle EA EYE SCH (21:22)
[2017-11-24] MEDS: Atorvastatin Calcium 10 MG TAB PO SCH (21:22)
[2017-11-24] MEDS: Amlodipine 5 MG TAB PO SCH (21:23)
[2017-11-24 21:26] VITALS: BP 119/54
[2017-11-24 22:40] VITALS: TEMP 98.3
[2017-11-25 06:10] LABS: INR-International Normal Ratio 1.1; Prothrombin Time 14.1 SEC (12.0-14.7)
[2017-11-25 06:13] LABS: Hemoglobin 8.9 g/dL (12.0-16.0); Mean Corpuscular HGB CONC 31.2 g/dL (32.0-36.0); Mean Corpuscular Hemoglobin 31.8 pg (27.0-31.0); Mean Platelet Volume 4.9 fL (7.4-10.4); Platelet Count 289 thou/uL (130-400); RBC Distribution Width 14.7 % (11.5-14.5); White Blood Cell (WBC) Count 7.6 thou/uL (4.8-10.8)
[2017-11-25 06:16] LABS: ALT (SGPT) 10 U/L (8-55); AST (SGOT) 13 U/L (5-34); Albumin 2.8 g/dL (3.4-4.8); Alkaline Phosphatase 87 U/L (40-150); Anion Gap 13 mmol/L (10-20); BUN (Urea Nitrogen) 22 mg/dL (9.8-20.1); Bilirubin, Total 0.3 mg/dL (0.2-1.2); Calc. Creatinine Clearance 72 mL/min (70-130); Calcium 9.4 mg/dL (7.8-10.44); Carbon Dioxide 32 mmol/L (23-31); Chloride 93 mmol/L (98-107); Estimated GFR-MDRD 55; Globulin 3.1 g/dL (2.4-3.5); Glucose 102 mg/dL (83-110); Potassium 4.2 mmol/L (3.5-5.1); Protein, Total 5.9 g/dL (6.0-8.3); Sodium 134 mmol/L (136-145)
[2017-11-25 06:23] LABS: Eosinophils 4 % (0-10); Lymphocytes 30 % (21-51); MDiff Complete? YES; Macrocytosis SLIGHT = 6-15 cells (100X) (0-5/hpf); Monocytes 8 % (0-10); Neutrophil 58 % (42-75); PLT Morphology Comment Appears Adequate
[2017-11-25 06:29] LABS: CKMB 0.6 ng/mL (0-6.6); Troponin I 0.041 ng/mL (< 0.028)
--- NOTE | 2017-12-25 15:53 | DIS ---
DATE OF ADMISSION: To Sn[facility] at [facility] was 11/04/2017. DATE OF DISCHARGE/TRANSFER: 11/25/2017 REASON FOR TRANSFER: Altered mental status. BRIEF SUMMARY OF HISTORY AND PHYSICAL: The patient is an 82-year-old female who has had previously b een admitted to [facility] on 10/03/2017 with altered mental status, slurred s peech, incoherence, confusion, dysarthria, and difficulty to ambulate. She had extensive hospitaliza tion for approximately a month and then was transferred to [facility] due to d econditioning and her recent metabolic encephalopathy that was determined to be the cause of her alte red mental status. While at [facility], the patient slowly improved. She had some edema that was treated with IV and p.o. Lasix. The patient continued with physical therapy and occupational therapy, and had a suspected urinary tract infection that was treated orally on the mor gaudencio of 11/25/2017. The nursing staff came to the patient's room, the patient was difficult to arous e, was confused, incoherent, unable to ambulate due to the altered mental status and change in her ov erall status, she was sent to the emergency room for evaluation. In the emergency room, she had a CT scan which did not show any acute findings. Due to her altered mental status, she was deemed to be appropriate to be sent back to [facility] for further evaluation. The patient from the emergency room was sent via EMS to [facility]. She was accepted and had admission by the [facility]. She was sent with IV hep-lock and oxygen as far. DISCHARGE MEDICATIONS: The patient will likely continue all her discharge medications pending evalua tion by the [facility], which would include tramadol 50 mg q.4 hours p.r.n. pain, minoxidil 2. 5 mg daily, Imdur 60 mg daily, Lasix 40 mg daily, folic acid 1 mg daily, iron sulfate 325 mg daily, f amotidine 20 mg b.i.d., Cymbalta 60 mg daily, Colace 100 mg p.o. b.i.d., clonidine 0.1 mg p.o. q.8 ho urs as needed for uncontrolled hypertension, Coreg 25 mg p.o. b.i.d., Lipitor 10 mg p.o. at bedtime, aspirin 325 mg daily, Norvasc 10 mg at bedtime, allopurinol 300 mg daily, Tylenol 650 mg p.o. every 6 hours p.r.n. pain. Code status appears to be FULL CODE. ALLERGIES: IODINE, PRIMIDONE, and HERPES ZOSTER VACCINE. Once patient is evaluated and treated at [facility] if she improves and stable enough to be transferred [facility]. We will likely accept her at that time.
== END 2017-11-25 06:02 | disposition critical access hospital (66) | DRG 292 ==
LOC: BURMED 18:50
PROVIDERS: ADMIT Family Medicine; ATTEND Family Medicine
DX: I11.0 Hypertensive heart disease with heart failure (principal); L02.211 Cutaneous abscess of abdominal wall; E66.01 Morbid (severe) obesity due to excess calories; Z68.41 Body mass index [BMI] 40.0-44.9, adult; N39.0 Urinary tract infection, site not specified; R13.12 Dysphagia, oropharyngeal phase; R63.0 Anorexia; I50.32 Chronic diastolic (congestive) heart failure; G25.0 Essential tremor; Z87.440 Personal history of urinary (tract) infections; T42.6X5D Adverse effect of other antiepileptic and sedative-hypnotic drugs, subsequent encounter; R29.6 Repeated falls; Z91.81 History of falling; M79.7 Fibromyalgia; M19.90 Unspecified osteoarthritis, unspecified site; G47.30 Sleep apnea, unspecified; Z86.73 Personal history of transient ischemic attack (TIA), and cerebral infarction without residual deficits
CPT/HCPCS: 36415; 36416; 71010; 80053; 80202; 81001; 82553; 82565; 82668; 82728; 83540; 83550; 83605; 84484; 85014; 85018; 85025; 85046; 85049; 85610; 87077; 87086; 87186; A4216; G8978-GP-CM; G8979-GP-CJ; G8987-GO-CM; G8988-GO-CJ; G8996-GN-CI; G8997-GN-CI; J1650; J1940; J3370; J7050; Q0162

== ENCOUNTER 2017-11-25 06:21 | Emergency (ER) | payer MEDICARE ==
[2017-11-25 07:02] LABS: Bilirubin Negative (Negative); Blood, Urine Moderate (Negative); Clarity Slightly Cloudy (Clear); Glucose, Urine (Dipstick) Negative (Negative); Leukocyte Small (Negative); Nitrite Negative (Negative); Protein, Urine (Dipstick) 100 mg/dL (Neg-Trace); Specific Gravity, Urine 1.015 (1.005-1.030); Urobilinogen 0.2 mg/dL (0.2-1.0)
[2017-11-25 07:09] LABS: Acetaminophen Less than 6.0 mcg/mL (10.0-30.0); Alcohol Less than 10 mg/dL (Less than 10); CK (CPK) 21 U/L (29-168); Salicylate Less than 8.0 mg/dL (15.0-30.0)
[2017-11-25 07:12] LABS: Bacteria/HPF 1+ HPF (None Seen); Squamous Epithelial 0-3 HPF (0-3); Yeast-All Forms 2+ HPF (None Seen)
[2017-11-25 07:13] LABS: Crystals/HPF 1+ AMORPH URATES HPF (Negative)
[2017-11-25 07:14] LABS: Amphetamine Not Detected (NotDetected); Barbiturates Screen Detected (NotDetected); Benzodiazepine Screen Not Detected (NotDetected); Cocaine Metabolite Screen Not Detected (NotDetected); Medtox Control Line Valid? VALID (VALID); Methadone Not Detected (NotDetected); Methamphetamine Not Detected (NotDetected); Opiate Screen Not Detected (NotDetected); Oxycodone Screen Not Detected (NotDetected); Phencyclidine (PCP) Not Detected (NotDetected); THC/Cannabinoid Screen Not Detected (NotDetected); Tricyclic Screen Not Detected (NotDetected)
[2017-11-25] MEDS ORDERED: Labetalol HCl 100 MG/20 ML VIAL ONE (07:37)
[2017-11-25] MEDS ORDERED: Nitroglycerin 2% Ointment 1 INCH/1 GM Packet ONE (08:35)
[2017-11-25] MEDS ORDERED: cefTRIAXone\\ROCEPHIN 1 GM VIAL ONE (08:35)
[2017-11-25] MEDS ORDERED: Sterile Water 10 ML ONE (08:41)
--- NOTE | 2017-11-25 09:51 | CT ---
PRELIMINARY REPORT/[facility]/EMERGENCY AFTER HOURS PROCEDURE: EXAM: CT Head Without Intravenous Contrast CLINICAL HISTORY: 82 years old, female; Signs and symptoms; Altered mental status/memory loss; Confusion or disorientat ion; Patient HX: AMS TECHNIQUE: Axial computed tomography images of the head/brain without intravenous contrast. All CT scans at this facility use one or more dose reduction techniques, viz.: automated exposure control; ma/kV adjustme nt per patient size (including targeted exams where dose is matched to indication; i.e. head); or ite rative reconstruction technique. COMPARISON: No relevant prior studies available. FINDINGS: Mildly limited due to streak artifact Brain: Mild volume loss No hemorrhage. No significant white matter disease. No edema. Ventricles: Unremarkable. No ventriculomegaly. Bones/joints: Unremarkable. No acute fracture. Soft tissues: Unremarkable. Sinuses: Unremarkable as visualized. No acute sinusitis. Mastoid air cells: Unremarkable as visualized. No mastoid effusion. IMPRESSION: No intracranial hemorrhage.Please see discussion above. Thank you for allowing us to participate in the care of your patient. Dictated and Authenticated by: Eduard Yun MD 11/25/2017 7:53 AM Central Time ([place] & [place]) FINAL REPORT CT HEAD NONCONTRAST: Date: 11-25-17 Performed on emergency basis at 0719 hours. History: Altered mental status. Comparison: 10-22-17 FINDINGS: Findings agree with the preliminary report by [facility]. Chronic type findings are stable. No acute intracranial abnormalities are demonstrated on noncontrast CT head. POS: [facility]
--- NOTE | 2017-11-25 10:03 | RAD ---
CHEST ONE VIEW: History: Altered mental status. Comparison: 11-10-17 FINDINGS: Cardiac silhouette is magnified and enlarged. Pulmonary vasculature are slightly engorged with patchy bibasilar infiltrates similar in appearance to the previous study. Mediastinum is midline. Motion ar tifact obscured detail. There are post-operative changes of the right shoulder. IMPRESSION: 1. Cardiomegaly, borderline pulmonary vascular congestion, and patchy bibasilar infiltrates are stabl e. POS: [facility]
[2017-11-25 11:17] LABS: Troponin I 0.035 ng/mL (< 0.028)
== END 2017-11-25 12:12 | disposition short-term general hospital (02) ==
LOC: BURERS 06:21
DX: I16.0 Hypertensive urgency (principal); N39.0 Urinary tract infection, site not specified; R74.8 Abnormal levels of other serum enzymes; J45.909 Unspecified asthma, uncomplicated; I11.0 Hypertensive heart disease with heart failure; I50.9 Heart failure, unspecified; F32.9 Major depressive disorder, single episode, unspecified
CPT/HCPCS: 70450; 71045; 80306; 80307; 81003; 81015; 82140; 83690; 84443; 87040; 87086; 93005; 94760; 96374; 96375; 36415-59; A4216; J0696

== ENCOUNTER 2017-11-26 17:10 | Inpatient (IN) | payer MEDICARE ==
[2017-11-26] MEDS ORDERED: Bisacodyl 5 MG TAB PO PRN (22:29)
[2017-11-26] MEDS ORDERED: Senokot 8.6 MG TAB PO PRN ×2 (22:29→22:32)
[2017-11-26] MEDS ORDERED: Ondansetron ODT 4 MG TAB PO PRN (22:29)
[2017-11-26] MEDS ORDERED: Milk Of Magnesia 30 ML UDCUP PO PRN (22:32)
[2017-11-26] MEDS ORDERED: Bisacodyl 10 MG SUPP PR PRN (22:32)
[2017-11-26] MEDS ORDERED: Albuterol Sulfate 1.25 MG/3 ML NEB NEB PRN (22:32)
[2017-11-26] MEDS ORDERED: traMADol HCl 50 MG TAB PO PRN (22:32)
[2017-11-27] MEDS: DULoxetine 30 MG CAP PO SCH (08:28)
[2017-11-27] MEDS: Ferrous Sulfate 325 MG TAB PO SCH (08:29)
[2017-11-27] MEDS: Aspirin 325 mg Enteric Coated Tablet PO SCH (08:29)
[2017-11-27] MEDS: Cyanocobalamin (Vitamin B-12) 1,000 MCG TAB PO SCH (08:29)
[2017-11-27] MEDS: Carvedilol 25 MG TAB PO SCH ×2 (08:29→17:18)
[2017-11-27] MEDS: Docusate 100 MG CAP PO SCH ×2 (08:29→21:51)
[2017-11-27] MEDS: Folic Acid 1 MG TAB PO SCH (08:29)
[2017-11-27] MEDS ORDERED: Milk Of Magnesia 30 ML UDCUP PO PRN (08:30)
[2017-11-27] MEDS ORDERED: Bisacodyl 10 MG SUPP PR PRN (08:30)
[2017-11-27] MEDS: Allopurinol 100 MG TAB PO SCH (08:30)
[2017-11-27] MEDS: Enoxaparin Sodium 40 MG/0.4 ML SYRINGE SC SCH (08:30)
[2017-11-27] MEDS: Furosemide 40 MG TAB PO SCH (08:30)
[2017-11-27] MEDS: Famotidine 20 MG TAB PO SCH ×2 (08:30→21:51)
[2017-11-27] MEDS: Floranex Packet PO SCH (08:31)
[2017-11-27] MEDS: Atorvastatin Calcium 10 MG TAB PO SCH (21:51)
[2017-11-27] MEDS: Latanoprost 0.005% Ophth Soln 2.5 ml Bottle EA EYE SCH (21:52)
[2017-11-27] MEDS: Amlodipine 5 MG TAB PO SCH (21:52)
[2017-11-28] MEDS: Acetaminophen 325 MG TAB PO PRN (02:17)
[2017-11-28 07:34] LABS: Hemoglobin 8.6 g/dL (12.0-16.0); Platelet Count 286 thou/uL (130-400)
[2017-11-28] MEDS: Aspirin 325 mg Enteric Coated Tablet PO SCH (09:41)
[2017-11-28] MEDS: DULoxetine 30 MG CAP PO SCH (09:42)
[2017-11-28] MEDS: Allopurinol 100 MG TAB PO SCH (09:43)
[2017-11-28] MEDS: Ferrous Sulfate 325 MG TAB PO SCH (09:44)
[2017-11-28] MEDS: Carvedilol 25 MG TAB PO SCH ×2 (09:44→18:02)
[2017-11-28] MEDS: Cyanocobalamin (Vitamin B-12) 1,000 MCG TAB PO SCH (09:45)
[2017-11-28] MEDS: Docusate 100 MG CAP PO SCH ×2 (09:45→22:03)
[2017-11-28] MEDS: Enoxaparin Sodium 40 MG/0.4 ML SYRINGE SC SCH (09:45)
[2017-11-28] MEDS: Furosemide 40 MG TAB PO SCH (09:45)
[2017-11-28] MEDS: Floranex Packet PO SCH (09:45)
[2017-11-28] MEDS: Famotidine 20 MG TAB PO SCH ×2 (09:45→22:03)
[2017-11-28] MEDS: Folic Acid 1 MG TAB PO SCH (09:45)
[2017-11-28] MEDS: cloNIDine 0.1 MG TAB PO PRN (19:04)
[2017-11-28] MEDS: Latanoprost 0.005% Ophth Soln 2.5 ml Bottle EA EYE SCH (22:01)
[2017-11-28] MEDS: Amlodipine 5 MG TAB PO SCH (22:02)
[2017-11-28] MEDS: Atorvastatin Calcium 10 MG TAB PO SCH (22:03)
[2017-11-29] MEDS: Cyanocobalamin (Vitamin B-12) 1,000 MCG TAB PO SCH (08:46)
[2017-11-29] MEDS: Carvedilol 25 MG TAB PO SCH ×2 (08:46→18:05)
[2017-11-29] MEDS: Floranex Packet PO SCH (08:46)
[2017-11-29] MEDS: Ferrous Sulfate 325 MG TAB PO SCH (08:46)
[2017-11-29] MEDS: Allopurinol 100 MG TAB PO SCH (08:46)
[2017-11-29] MEDS: Folic Acid 1 MG TAB PO SCH (08:47)
[2017-11-29] MEDS: Docusate 100 MG CAP PO SCH ×2 (08:47→20:33)
[2017-11-29] MEDS: Furosemide 40 MG TAB PO SCH (08:47)
[2017-11-29] MEDS: Aspirin 325 mg Enteric Coated Tablet PO SCH (08:47)
[2017-11-29] MEDS: DULoxetine 30 MG CAP PO SCH (08:47)
[2017-11-29] MEDS: Famotidine 20 MG TAB PO SCH ×2 (08:47→20:33)
[2017-11-29] MEDS: Enoxaparin Sodium 40 MG/0.4 ML SYRINGE SC SCH (08:48)
[2017-11-29] MEDS: Amlodipine 5 MG TAB PO SCH (20:34)
[2017-11-29] MEDS: Latanoprost 0.005% Ophth Soln 2.5 ml Bottle EA EYE SCH (20:34)
[2017-11-29] MEDS: Atorvastatin Calcium 10 MG TAB PO SCH (20:34)
[2017-11-30 05:38] LABS: Hemoglobin 9.1 g/dL (12.0-16.0); Platelet Count 288 thou/uL (130-400)
[2017-11-30] MEDS: DULoxetine 30 MG CAP PO SCH (08:32)
[2017-11-30] MEDS: Floranex Packet PO SCH (08:32)
[2017-11-30] MEDS: Aspirin 325 mg Enteric Coated Tablet PO SCH (08:32)
[2017-11-30] MEDS: Docusate 100 MG CAP PO SCH ×2 (08:32→22:22)
[2017-11-30] MEDS: Allopurinol 100 MG TAB PO SCH (08:33)
[2017-11-30] MEDS: Furosemide 40 MG TAB PO SCH (08:33)
[2017-11-30] MEDS: Ferrous Sulfate 325 MG TAB PO SCH (08:33)
[2017-11-30] MEDS: Famotidine 20 MG TAB PO SCH ×2 (08:33→23:20)
[2017-11-30] MEDS: Folic Acid 1 MG TAB PO SCH (08:33)
[2017-11-30] MEDS: Carvedilol 25 MG TAB PO SCH ×2 (08:34→17:59)
[2017-11-30] MEDS: Cyanocobalamin (Vitamin B-12) 1,000 MCG TAB PO SCH (08:34)
[2017-11-30] MEDS: Enoxaparin Sodium 40 MG/0.4 ML SYRINGE SC SCH (08:34)
[2017-11-30] MEDS: cloNIDine 0.1 MG TAB PO PRN (17:59)
[2017-11-30] MEDS: Amlodipine 5 MG TAB PO SCH (22:22)
[2017-11-30] MEDS: Latanoprost 0.005% Ophth Soln 2.5 ml Bottle EA EYE SCH (22:22)
[2017-11-30] MEDS ORDERED: Atorvastatin Calcium 40 MG TAB PO SCH (23:00)
[2017-11-30] MEDS: Atorvastatin Calcium 10 MG TAB PO SCH (23:19)
[2017-12-01] MEDS: Carvedilol 25 MG TAB PO SCH ×2 (09:45→18:17)
[2017-12-01] MEDS: Aspirin 325 mg Enteric Coated Tablet PO SCH (09:45)
[2017-12-01] MEDS: Ferrous Sulfate 325 MG TAB PO SCH (09:45)
[2017-12-01] MEDS: Docusate 100 MG CAP PO SCH ×2 (09:45→21:59)
[2017-12-01] MEDS: Cyanocobalamin (Vitamin B-12) 1,000 MCG TAB PO SCH (09:45)
[2017-12-01] MEDS: Furosemide 40 MG TAB PO SCH (09:45)
[2017-12-01] MEDS: Folic Acid 1 MG TAB PO SCH (09:45)
[2017-12-01] MEDS: Allopurinol 100 MG TAB PO SCH (09:46)
[2017-12-01] MEDS: Floranex Packet PO SCH (09:46)
[2017-12-01] MEDS: Enoxaparin Sodium 40 MG/0.4 ML SYRINGE SC SCH (09:46)
[2017-12-01] MEDS: DULoxetine 30 MG CAP PO SCH ×2 (10:07→12:08)
[2017-12-01] MEDS: Famotidine 20 MG TAB PO SCH ×3 (10:07→21:59)
[2017-12-01] MEDS: cloNIDine 0.1 MG TAB PO PRN (18:28)
[2017-12-01] MEDS: Atorvastatin Calcium 10 MG TAB PO SCH (21:59)
[2017-12-01] MEDS: Latanoprost 0.005% Ophth Soln 2.5 ml Bottle EA EYE SCH (21:59)
[2017-12-01] MEDS: Amlodipine 5 MG TAB PO SCH (22:00)
[2017-12-02 05:18] LABS: Hemoglobin 8.4 g/dL (12.0-16.0); Platelet Count 235 thou/uL (130-400)
[2017-12-02] MEDS: Enoxaparin Sodium 40 MG/0.4 ML SYRINGE SC SCH (09:17)
[2017-12-02] MEDS: Furosemide 40 MG TAB PO SCH (09:17)
[2017-12-02] MEDS: DULoxetine 30 MG CAP PO SCH (09:18)
[2017-12-02] MEDS: Folic Acid 1 MG TAB PO SCH (09:18)
[2017-12-02] MEDS: Allopurinol 100 MG TAB PO SCH (09:18)
[2017-12-02] MEDS: Cyanocobalamin (Vitamin B-12) 1,000 MCG TAB PO SCH (09:18)
[2017-12-02] MEDS: Floranex Packet PO SCH (09:18)
[2017-12-02] MEDS: Carvedilol 25 MG TAB PO SCH ×2 (09:19→17:10)
[2017-12-02] MEDS: Docusate 100 MG CAP PO SCH ×2 (09:19→20:59)
[2017-12-02] MEDS: Aspirin 325 mg Enteric Coated Tablet PO SCH (09:19)
[2017-12-02] MEDS: Ferrous Sulfate 325 MG TAB PO SCH (09:19)
[2017-12-02] MEDS: Famotidine 20 MG TAB PO SCH ×2 (09:43→20:59)
[2017-12-02] MEDS: cloNIDine 0.1 MG TAB PO PRN (17:39)
[2017-12-02] MEDS: Atorvastatin Calcium 10 MG TAB PO SCH (20:59)
[2017-12-02] MEDS: Amlodipine 5 MG TAB PO SCH (21:00)
[2017-12-02] MEDS: Latanoprost 0.005% Ophth Soln 2.5 ml Bottle EA EYE SCH (21:00)
[2017-12-03] MEDS: Enoxaparin Sodium 40 MG/0.4 ML SYRINGE SC SCH (08:48)
[2017-12-03] MEDS: Allopurinol 100 MG TAB PO SCH (08:48)
[2017-12-03] MEDS: Cyanocobalamin (Vitamin B-12) 1,000 MCG TAB PO SCH (08:49)
[2017-12-03] MEDS: DULoxetine 30 MG CAP PO SCH (08:49)
[2017-12-03] MEDS: Folic Acid 1 MG TAB PO SCH (08:49)
[2017-12-03] MEDS: Famotidine 20 MG TAB PO SCH ×2 (08:49→20:50)
[2017-12-03] MEDS: Furosemide 40 MG TAB PO SCH (08:49)
[2017-12-03] MEDS: Carvedilol 25 MG TAB PO SCH ×2 (08:50→16:37)
[2017-12-03] MEDS: Aspirin 325 mg Enteric Coated Tablet PO SCH (08:50)
[2017-12-03] MEDS: Ferrous Sulfate 325 MG TAB PO SCH (08:50)
[2017-12-03] MEDS: Docusate 100 MG CAP PO SCH ×2 (08:50→20:51)
[2017-12-03] MEDS: Floranex Packet PO SCH (08:50)
[2017-12-03] MEDS: cloNIDine 0.1 MG TAB PO PRN (17:49)
[2017-12-03] MEDS: Latanoprost 0.005% Ophth Soln 2.5 ml Bottle EA EYE SCH (20:49)
[2017-12-03] MEDS: Atorvastatin Calcium 10 MG TAB PO SCH (20:51)
[2017-12-03] MEDS: Amlodipine 5 MG TAB PO SCH (20:51)
[2017-12-03] MEDS: Lisinopril 10 MG TAB PO SCH (20:52)
[2017-12-04] MEDS: cloNIDine 0.1 MG TAB PO PRN (05:25)
[2017-12-04 06:34] LABS: Hemoglobin 8.2 g/dL (12.0-16.0)
[2017-12-04 06:35] LABS: Platelet Count 210 thou/uL (130-400)
[2017-12-04] MEDS: Enoxaparin Sodium 40 MG/0.4 ML SYRINGE SC SCH (09:00)
[2017-12-04] MEDS: Allopurinol 100 MG TAB PO SCH (09:00)
[2017-12-04] MEDS: Folic Acid 1 MG TAB PO SCH (09:00)
[2017-12-04] MEDS: Furosemide 40 MG TAB PO SCH (09:00)
[2017-12-04] MEDS: Aspirin 325 mg Enteric Coated Tablet PO SCH (09:01)
[2017-12-04] MEDS: Floranex Packet PO SCH (09:01)
[2017-12-04] MEDS: Docusate 100 MG CAP PO SCH ×2 (09:01→20:21)
[2017-12-04] MEDS: Famotidine 20 MG TAB PO SCH ×2 (09:02→20:18)
[2017-12-04] MEDS: Cyanocobalamin (Vitamin B-12) 1,000 MCG TAB PO SCH (09:02)
[2017-12-04] MEDS: Carvedilol 25 MG TAB PO SCH ×2 (09:03→17:04)
[2017-12-04] MEDS: Ferrous Sulfate 325 MG TAB PO SCH (09:03)
[2017-12-04] MEDS: DULoxetine 30 MG CAP PO SCH (09:03)
[2017-12-04] MEDS: Atorvastatin Calcium 10 MG TAB PO SCH (20:18)
[2017-12-04] MEDS: Lisinopril 10 MG TAB PO SCH (20:18)
[2017-12-04] MEDS: Amlodipine 5 MG TAB PO SCH (20:18)
[2017-12-04] MEDS: Latanoprost 0.005% Ophth Soln 2.5 ml Bottle EA EYE SCH (20:22)
--- NOTE | 2017-12-04 23:20 | HP ---
REASON FOR TRANSFER: To swing bed is chronic deconditioning with acute exacerbation and sleep apnea with hypoventilation syndrome. HISTORY OF PRESENT ILLNESS: The patient is an 82-year-old -[place]izen [place] female who has had extens omar recent medical history, please see recent hospitalization at [facility] as well as her correction admission. The patient was actually transferred from [facility] correction to acute care status at [facility] on 11/25/19 18 after an episode of altered mental status with confusion and disorientation. She was seen and lucero luated at [facility] and was found to have likely altered mental status second hayder to hypoventilation syndrome, due to her morbid obesity with a history of sleep apnea in the past. The patient was continued to be extremely weak, so unable to ambulate on her own or transfers witho ut assistance and it was felt that it would be appropriate for her to be transferred back to [facility] for continued rehabilitation and physical therapy as well as use of CPAP ma vivian to see if her confusion completely resolves. PAST MEDICAL HISTORY: 1. Hypertension. 2. History of previous TIA/CVA. 3. Obesity. 4. Osteoarthritis. 5. History of essential tremors. For full past medical history see recent hospitalization. REVIEW OF SYSTEMS: At this time, the patient is back to her baseline mental status. She is alert an d oriented x3. She denies any distress. She reports no significant cough. No shortness of breath o r chest pain, no URI-like symptoms. No recent visual changes. The patient reports occasional consti pation, which appears to be well controlled at this time. She reports appetite has been improving. No nausea or vomiting. The patient had a recent incontinence and has had a chronic Escamilla catheter, w hich hopefully will be removed soon. The patient denies any depression. She says her tremor is abou t at its baseline. No significant increased joint aches or pains. She has no rashes other than some small hematomas on her abdomen from her recent Lovenox injections. PHYSICAL EXAMINATION: GENERAL: Elderly female, alert and oriented x3, in no obvious distress. VITAL SIGNS: Blood pressure 168/68, respiratory rate 16, pulse was in the 80s. HEENT: Atraumatic, normocephalic. Extraocular movements are intact. Pupils are equal, round, and r eactive to light and accommodation. Oropharynx, mucous membranes were moist. NECK: Supple, no masses palpated. CHEST: Clear to auscultation bilaterally. HEART: Regular rate and rhythm with occasional ectopic beat. ABDOMEN: Obese, soft, nontender, nondistended, no masses were palpated. Resolving hematoma was note d without significant warmth. EXTREMITY: Some diffuse edema of the extremities noted. NEUROLOGIC: The patient has diffuse motor weakness of all extremities. She does have essential rest ing tremor. ASSESSMENT AND PLAN: 1. Deconditioning severe, the patient had some mild improvement while she is undergoing her physical therapy and occupational therapy prior to this episode of altered mental status. She still could no t be independent, could not transfer on her own and really needs to continue her occupational and phy sical therapy, thus she is appropriate for admission. 2. Recent altered mental status likely secondary to hypoventilation syndrome from sleep apnea and mo rbid obesity. The patient was given an Auto CPAP device at [facility], which has been sent over with her. We will continue the auto CPAP. She will need a sleep study because he r insurance will not cover CPAP device without a recent sleep study. We will try to have this [facility] ed on an outpatient basis. 3. Hypertension. She has had a history of high blood pressure was difficult to control. We will co ntinue clonidine p.r.n. as well as Norvasc, Coreg and minoxidil. 4. Deep venous thrombosis prophylaxis. We will continue the patient on Lovenox while she has poor a bility to ambulate. 5. History of urinary incontinence. The patient was treated for UTI, which appears to resolve. Hop efully, we will remove the Escamilla catheter in the near future. DISPOSITION: The patient wishes to be discharged to home at this time, she will need extensive impro vement in her overall conditioning if that will be possible.
[2017-12-05] MEDS: Cyanocobalamin (Vitamin B-12) 1,000 MCG TAB PO SCH (08:52)
[2017-12-05] MEDS: Aspirin 325 mg Enteric Coated Tablet PO SCH (08:52)
[2017-12-05] MEDS: Folic Acid 1 MG TAB PO SCH (08:52)
[2017-12-05] MEDS: Famotidine 20 MG TAB PO SCH ×2 (08:53→20:41)
[2017-12-05] MEDS: Allopurinol 100 MG TAB PO SCH (08:53)
[2017-12-05] MEDS: DULoxetine 30 MG CAP PO SCH (08:53)
[2017-12-05] MEDS: Ferrous Sulfate 325 MG TAB PO SCH (08:54)
[2017-12-05] MEDS: Furosemide 40 MG TAB PO SCH (08:54)
[2017-12-05] MEDS: Carvedilol 25 MG TAB PO SCH ×2 (08:55→19:43)
[2017-12-05] MEDS: Floranex Packet PO SCH (08:55)
[2017-12-05] MEDS: Enoxaparin Sodium 40 MG/0.4 ML SYRINGE SC SCH (08:55)
[2017-12-05] MEDS: Docusate 100 MG CAP PO SCH ×2 (08:56→20:39)
[2017-12-05] MEDS: Acetaminophen 325 MG TAB PO PRN (09:01)
[2017-12-05] MEDS: Latanoprost 0.005% Ophth Soln 2.5 ml Bottle EA EYE SCH (20:38)
[2017-12-05] MEDS: Atorvastatin Calcium 10 MG TAB PO SCH (20:41)
[2017-12-05] MEDS: Amlodipine 5 MG TAB PO SCH (20:42)
[2017-12-05] MEDS: Lisinopril 10 MG TAB PO SCH (20:43)
[2017-12-05] MEDS: cloNIDine 0.1 MG TAB PO PRN (22:41)
[2017-12-06 05:56] LABS: Hemoglobin 8.6 g/dL (12.0-16.0); Platelet Count 186 thou/uL (130-400)
[2017-12-06] MEDS: cloNIDine 0.1 MG TAB PO PRN (06:25)
[2017-12-06] MEDS: Floranex Packet PO SCH (08:15)
[2017-12-06] MEDS: Aspirin 325 mg Enteric Coated Tablet PO SCH (08:16)
[2017-12-06] MEDS: DULoxetine 30 MG CAP PO SCH (08:16)
[2017-12-06] MEDS: Cyanocobalamin (Vitamin B-12) 1,000 MCG TAB PO SCH (08:16)
[2017-12-06] MEDS: Folic Acid 1 MG TAB PO SCH (08:16)
[2017-12-06] MEDS: Famotidine 20 MG TAB PO SCH ×2 (08:17→21:01)
[2017-12-06] MEDS: Allopurinol 100 MG TAB PO SCH (08:17)
[2017-12-06] MEDS: Ferrous Sulfate 325 MG TAB PO SCH (08:18)
[2017-12-06] MEDS: Furosemide 40 MG TAB PO SCH (08:18)
[2017-12-06] MEDS: Carvedilol 25 MG TAB PO SCH ×2 (08:18→17:40)
[2017-12-06] MEDS: Docusate 100 MG CAP PO SCH ×2 (08:19→21:02)
[2017-12-06] MEDS: Enoxaparin Sodium 40 MG/0.4 ML SYRINGE SC SCH (08:19)
[2017-12-06] MEDS: Latanoprost 0.005% Ophth Soln 2.5 ml Bottle EA EYE SCH (21:00)
[2017-12-06] MEDS: Amlodipine 5 MG TAB PO SCH (21:01)
[2017-12-06] MEDS: Atorvastatin Calcium 10 MG TAB PO SCH (21:01)
[2017-12-06] MEDS: Lisinopril 10 MG TAB PO SCH (21:02)
[2017-12-07] MEDS: Acetaminophen 325 MG TAB PO PRN ×2 (03:08→14:18)
[2017-12-07] MEDS: Cyanocobalamin (Vitamin B-12) 1,000 MCG TAB PO SCH (09:39)
[2017-12-07] MEDS: Allopurinol 100 MG TAB PO SCH (09:39)
[2017-12-07] MEDS: Aspirin 325 mg Enteric Coated Tablet PO SCH (09:40)
[2017-12-07] MEDS: Ferrous Sulfate 325 MG TAB PO SCH (09:41)
[2017-12-07] MEDS: Folic Acid 1 MG TAB PO SCH (09:41)
[2017-12-07] MEDS: Furosemide 40 MG TAB PO SCH (09:41)
[2017-12-07] MEDS: Floranex Packet PO SCH (09:41)
[2017-12-07] MEDS: DULoxetine 30 MG CAP PO SCH (09:41)
[2017-12-07] MEDS: Famotidine 20 MG TAB PO SCH ×2 (09:41→20:34)
[2017-12-07] MEDS: Carvedilol 25 MG TAB PO SCH ×2 (09:43→17:53)
[2017-12-07] MEDS: Enoxaparin Sodium 40 MG/0.4 ML SYRINGE SC SCH (09:43)
[2017-12-07] MEDS: Docusate 100 MG CAP PO SCH ×2 (09:49→20:34)
[2017-12-07] MEDS: Atorvastatin Calcium 10 MG TAB PO SCH (20:33)
[2017-12-07] MEDS: Amlodipine 5 MG TAB PO SCH (20:33)
[2017-12-07] MEDS: Latanoprost 0.005% Ophth Soln 2.5 ml Bottle EA EYE SCH (20:35)
[2017-12-07] MEDS: Lisinopril 10 MG TAB PO SCH (21:18)
[2017-12-08] MEDS: cloNIDine 0.1 MG TAB PO PRN ×2 (05:22→18:26)
[2017-12-08 06:26] LABS: Hemoglobin 8.9 g/dL (12.0-16.0); Platelet Count 175 thou/uL (130-400)
[2017-12-08] MEDS: Docusate 100 MG CAP PO SCH ×2 (09:46→20:47)
[2017-12-08] MEDS: Carvedilol 25 MG TAB PO SCH ×2 (09:46→17:13)
[2017-12-08] MEDS: Ferrous Sulfate 325 MG TAB PO SCH (09:46)
[2017-12-08] MEDS: Floranex Packet PO SCH (09:46)
[2017-12-08] MEDS: Folic Acid 1 MG TAB PO SCH (09:46)
[2017-12-08] MEDS: DULoxetine 30 MG CAP PO SCH (09:47)
[2017-12-08] MEDS: Famotidine 20 MG TAB PO SCH ×2 (09:47→20:48)
[2017-12-08] MEDS: Allopurinol 100 MG TAB PO SCH (09:47)
[2017-12-08] MEDS: Furosemide 40 MG TAB PO SCH (09:47)
[2017-12-08] MEDS: Aspirin 325 mg Enteric Coated Tablet PO SCH (09:47)
[2017-12-08] MEDS: Cyanocobalamin (Vitamin B-12) 1,000 MCG TAB PO SCH (09:47)
[2017-12-08] MEDS: Enoxaparin Sodium 40 MG/0.4 ML SYRINGE SC SCH (10:49)
[2017-12-08] MEDS: Latanoprost 0.005% Ophth Soln 2.5 ml Bottle EA EYE SCH (20:46)
[2017-12-08] MEDS: Atorvastatin Calcium 10 MG TAB PO SCH (20:47)
[2017-12-08] MEDS: Lisinopril 10 MG TAB PO SCH (20:47)
[2017-12-08] MEDS: Amlodipine 5 MG TAB PO SCH (20:48)
[2017-12-09 05:22] LABS: #Basophils 0.1 thou/uL (0.0-0.2); #Eosinphils 0.3 thou/uL (0.0-0.7); #Lymphocytes 1.5 thou/uL (1.20-3.40); #Monocytes 0.7 thou/uL (0.11-0.59); #Neutrophils 3.7 thou/uL (1.40-6.50); %Basophils 2.2 % (0.0-1.0); %Eosinophils 4.8 % (0.0-10.0); %Monocytes 10.6 % (0.0-10.0); %Neutrophils 59.4 % (42.0-75.0); Hemoglobin 8.4 g/dL (12.0-16.0); Mean Corpuscular HGB CONC 31.8 g/dL (32.0-36.0); Mean Corpuscular Hemoglobin 31.4 pg (27.0-31.0); Mean Corpuscular Volume 98.7 fl (81.0-99.0); Mean Platelet Volume 5.7 fL (7.4-10.4); Platelet Count 176 thou/uL (130-400); Red Blood Cell (RBC) Count 2.67 mill/uL (4.20-5.40); White Blood Cell (WBC) Count 6.3 thou/uL (4.8-10.8)
[2017-12-09 05:32] LABS: ALT (SGPT) 12 U/L (8-55); AST (SGOT) 13 U/L (5-34); Albumin 2.8 g/dL (3.4-4.8); Alkaline Phosphatase 61 U/L (40-150); Anion Gap 12 mmol/L (10-20); BUN (Urea Nitrogen) 13 mg/dL (9.8-20.1); Bilirubin, Total 0.6 mg/dL (0.2-1.2); Calc. Creatinine Clearance 98 mL/min (70-130); Calcium 8.9 mg/dL (7.8-10.44); Carbon Dioxide 30 mmol/L (23-31); Chloride 101 mmol/L (98-107); Estimated GFR-MDRD 78; Globulin 2.5 g/dL (2.4-3.5); Glucose 109 mg/dL (83-110); Potassium 3.3 mmol/L (3.5-5.1); Protein, Total 5.3 g/dL (6.0-8.3); Sodium 140 mmol/L (136-145)
--- NOTE | 2017-12-09 06:59 | RAD ---
CHEST 2 VIEWS: Date: 12/09/17 PA and lateral views are compared with the 11/10/17 portable film. FINDINGS: The haziness in the right base is clear. There are no focal pulmonary infiltrates at the moment. Mild cardiomegaly is present, but is no worse than before. There is no congestion. The mediastinum is unr emarkable. The trachea is midline. IMPRESSION: 1. Mild cardiomegaly without congestive change. 2. Prior infiltrates cleared. POS: HOME
[2017-12-09] MEDS: Enoxaparin Sodium 40 MG/0.4 ML SYRINGE SC SCH (09:41)
[2017-12-09] MEDS: Allopurinol 100 MG TAB PO SCH (09:41)
[2017-12-09] MEDS: Floranex Packet PO SCH (09:41)
[2017-12-09] MEDS: Cyanocobalamin (Vitamin B-12) 1,000 MCG TAB PO SCH (09:42)
[2017-12-09] MEDS: Furosemide 40 MG TAB PO SCH (09:43)
[2017-12-09] MEDS: Folic Acid 1 MG TAB PO SCH (09:48)
[2017-12-09] MEDS: Ferrous Sulfate 325 MG TAB PO SCH (09:48)
[2017-12-09] MEDS: DULoxetine 30 MG CAP PO SCH (09:48)
[2017-12-09] MEDS: Famotidine 20 MG TAB PO SCH ×2 (09:48→20:19)
[2017-12-09] MEDS: Carvedilol 25 MG TAB PO SCH ×2 (09:48→16:14)
[2017-12-09] MEDS: Docusate 100 MG CAP PO SCH ×2 (09:49→20:20)
[2017-12-09] MEDS: Aspirin 325 mg Enteric Coated Tablet PO SCH (09:49)
[2017-12-09] MEDS ORDERED: Fluticasone Propionate Nasal Spray 16 gm Bottle NASAL SCH ×2 (15:45)
[2017-12-09] MEDS ORDERED: Potassium Chloride 20 MEQ TAB PO SCH (15:45)
[2017-12-09] MEDS: Atorvastatin Calcium 10 MG TAB PO SCH (20:19)
[2017-12-09] MEDS: Latanoprost 0.005% Ophth Soln 2.5 ml Bottle EA EYE SCH (20:19)
[2017-12-09] MEDS: Amlodipine 5 MG TAB PO SCH (20:19)
[2017-12-09] MEDS: Lisinopril 20 MG TAB PO SCH (20:20)
[2017-12-10 05:30] LABS: Hemoglobin 9.4 g/dL (12.0-16.0); Platelet Count 180 thou/uL (130-400)
[2017-12-10] MEDS: Allopurinol 100 MG TAB PO SCH (08:31)
[2017-12-10] MEDS: Furosemide 40 MG TAB PO SCH (08:31)
[2017-12-10] MEDS: DULoxetine 30 MG CAP PO SCH (08:31)
[2017-12-10] MEDS: Enoxaparin Sodium 40 MG/0.4 ML SYRINGE SC SCH (08:32)
[2017-12-10] MEDS: Potassium Chloride 20 MEQ TAB PO SCH ×2 (08:32→17:14)
[2017-12-10] MEDS: Folic Acid 1 MG TAB PO SCH (08:33)
[2017-12-10] MEDS: Cyanocobalamin (Vitamin B-12) 1,000 MCG TAB PO SCH (08:33)
[2017-12-10] MEDS: Famotidine 20 MG TAB PO SCH ×2 (08:33→19:58)
[2017-12-10] MEDS: Ferrous Sulfate 325 MG TAB PO SCH (08:33)
[2017-12-10] MEDS: Fluticasone Propionate Nasal Spray 16 gm Bottle NASAL SCH (08:34)
[2017-12-10] MEDS: Carvedilol 25 MG TAB PO SCH ×2 (08:34→17:14)
[2017-12-10] MEDS: Floranex Packet PO SCH (08:34)
[2017-12-10] MEDS: Aspirin 325 mg Enteric Coated Tablet PO SCH (08:34)
[2017-12-10] MEDS: Docusate 100 MG CAP PO SCH ×2 (08:40→20:00)
[2017-12-10] MEDS: Acetaminophen 325 MG TAB PO PRN ×2 (08:45→20:03)
[2017-12-10] MEDS: cloNIDine 0.1 MG TAB PO PRN (17:49)
[2017-12-10] MEDS: Amlodipine 5 MG TAB PO SCH (19:58)
[2017-12-10] MEDS: Latanoprost 0.005% Ophth Soln 2.5 ml Bottle EA EYE SCH (19:58)
[2017-12-10] MEDS: Atorvastatin Calcium 10 MG TAB PO SCH (19:58)
[2017-12-10] MEDS: Lisinopril 20 MG TAB PO SCH (19:59)
[2017-12-11 05:28] LABS: ALT (SGPT) 12 U/L (8-55); AST (SGOT) 13 U/L (5-34); Albumin 2.9 g/dL (3.4-4.8); Alkaline Phosphatase 61 U/L (40-150); Anion Gap 14 mmol/L (10-20); BUN (Urea Nitrogen) 15 mg/dL (9.8-20.1); Bilirubin, Total 0.6 mg/dL (0.2-1.2); Calc. Creatinine Clearance 88 mL/min (70-130); Calcium 9.1 mg/dL (7.8-10.44); Chloride 102 mmol/L (98-107); Estimated GFR-MDRD 70; Globulin 2.5 g/dL (2.4-3.5); Glucose 108 mg/dL (83-110); Potassium 3.7 mmol/L (3.5-5.1); Protein, Total 5.4 g/dL (6.0-8.3); Sodium 141 mmol/L (136-145)
[2017-12-11 05:32] LABS: Carbon Dioxide 29 mmol/L (23-31)
[2017-12-11] MEDS: Enoxaparin Sodium 40 MG/0.4 ML SYRINGE SC SCH (08:32)
[2017-12-11] MEDS: Aspirin 325 mg Enteric Coated Tablet PO SCH (08:32)
[2017-12-11] MEDS: Carvedilol 25 MG TAB PO SCH ×2 (08:32→17:32)
[2017-12-11] MEDS: Allopurinol 100 MG TAB PO SCH (08:32)
[2017-12-11] MEDS: DULoxetine 30 MG CAP PO SCH (08:33)
[2017-12-11] MEDS: Famotidine 20 MG TAB PO SCH ×2 (08:33→20:43)
[2017-12-11] MEDS: Cyanocobalamin (Vitamin B-12) 1,000 MCG TAB PO SCH (08:33)
[2017-12-11] MEDS: Folic Acid 1 MG TAB PO SCH (08:34)
[2017-12-11] MEDS: Docusate 100 MG CAP PO SCH ×2 (08:34→20:43)
[2017-12-11] MEDS: Potassium Chloride 20 MEQ TAB PO SCH ×2 (08:34→17:32)
[2017-12-11] MEDS: Ferrous Sulfate 325 MG TAB PO SCH (08:34)
[2017-12-11] MEDS: Furosemide 40 MG TAB PO SCH (08:34)
[2017-12-11] MEDS: Floranex Packet PO SCH (08:35)
[2017-12-11] MEDS: Fluticasone Propionate Nasal Spray 16 gm Bottle NASAL SCH (08:35)
[2017-12-11] MEDS: cloNIDine 0.1 MG TAB PO PRN (09:16)
[2017-12-11] MEDS: Atorvastatin Calcium 10 MG TAB PO SCH (20:43)
[2017-12-11] MEDS: Lisinopril 20 MG TAB PO SCH (20:43)
[2017-12-11] MEDS: Latanoprost 0.005% Ophth Soln 2.5 ml Bottle EA EYE SCH (20:44)
[2017-12-11] MEDS: Amlodipine 5 MG TAB PO SCH (20:44)
[2017-12-12 05:17] LABS: Hemoglobin 8.4 g/dL (12.0-16.0); Platelet Count 166 thou/uL (130-400)
[2017-12-12] MEDS: Potassium Chloride 20 MEQ TAB PO SCH ×2 (08:26→17:22)
[2017-12-12] MEDS: Furosemide 40 MG TAB PO SCH (08:27)
[2017-12-12] MEDS: Acetaminophen 325 MG TAB PO PRN (08:27)
[2017-12-12] MEDS: Folic Acid 1 MG TAB PO SCH (08:28)
[2017-12-12] MEDS: Famotidine 20 MG TAB PO SCH ×2 (08:28→20:34)
[2017-12-12] MEDS: DULoxetine 30 MG CAP PO SCH (08:28)
[2017-12-12] MEDS: Carvedilol 25 MG TAB PO SCH ×2 (08:29→17:22)
[2017-12-12] MEDS: Allopurinol 100 MG TAB PO SCH (08:29)
[2017-12-12] MEDS: Aspirin 325 mg Enteric Coated Tablet PO SCH (08:29)
[2017-12-12] MEDS: Docusate 100 MG CAP PO SCH ×2 (08:29→20:35)
[2017-12-12] MEDS: Ferrous Sulfate 325 MG TAB PO SCH (08:29)
[2017-12-12] MEDS: Cyanocobalamin (Vitamin B-12) 1,000 MCG TAB PO SCH (08:30)
[2017-12-12] MEDS: Floranex Packet PO SCH (08:30)
[2017-12-12] MEDS: Enoxaparin Sodium 40 MG/0.4 ML SYRINGE SC SCH (08:30)
[2017-12-12] MEDS: Fluticasone Propionate Nasal Spray 16 gm Bottle NASAL SCH (14:02)
[2017-12-12] MEDS: Latanoprost 0.005% Ophth Soln 2.5 ml Bottle EA EYE SCH (20:33)
[2017-12-12] MEDS: Amlodipine 5 MG TAB PO SCH (20:33)
[2017-12-12] MEDS: Atorvastatin Calcium 10 MG TAB PO SCH (20:34)
[2017-12-12] MEDS: Lisinopril 20 MG TAB PO SCH (20:34)
[2017-12-13] MEDS ORDERED: Amoxicillin/Potassium Clav 875 MG TAB ONE (06:27)
[2017-12-13] MEDS: Famotidine 20 MG TAB PO SCH ×2 (08:17→22:02)
[2017-12-13] MEDS: Floranex Packet PO SCH (08:17)
[2017-12-13] MEDS: Aspirin 325 mg Enteric Coated Tablet PO SCH (08:17)
[2017-12-13] MEDS: Potassium Chloride 20 MEQ TAB PO SCH ×2 (08:18→17:31)
[2017-12-13] MEDS: DULoxetine 30 MG CAP PO SCH (08:18)
[2017-12-13] MEDS: Ferrous Sulfate 325 MG TAB PO SCH (08:18)
[2017-12-13] MEDS: Docusate 100 MG CAP PO SCH ×2 (08:18→22:06)
[2017-12-13] MEDS: Furosemide 40 MG TAB PO SCH (08:19)
[2017-12-13] MEDS: Cyanocobalamin (Vitamin B-12) 1,000 MCG TAB PO SCH (08:19)
[2017-12-13] MEDS: Carvedilol 25 MG TAB PO SCH ×2 (08:20→17:30)
[2017-12-13] MEDS: Allopurinol 100 MG TAB PO SCH (08:20)
[2017-12-13] MEDS: Folic Acid 1 MG TAB PO SCH (08:20)
[2017-12-13] MEDS: Enoxaparin Sodium 40 MG/0.4 ML SYRINGE SC SCH (08:21)
[2017-12-13] MEDS: Fluticasone Propionate Nasal Spray 16 gm Bottle NASAL SCH (08:21)
[2017-12-13] MEDS ORDERED: cloNIDine 0.1mg/24 Hour PATCH TD SCH (13:45)
[2017-12-13] MEDS: Amlodipine 5 MG TAB PO SCH (22:02)
[2017-12-13] MEDS: Latanoprost 0.005% Ophth Soln 2.5 ml Bottle EA EYE SCH (22:02)
[2017-12-13] MEDS: Atorvastatin Calcium 10 MG TAB PO SCH (22:02)
[2017-12-13] MEDS: Lisinopril 20 MG TAB PO SCH (22:05)
[2017-12-14 05:58] LABS: Hemoglobin 9.9 g/dL (12.0-16.0); Platelet Count 196 thou/uL (130-400)
[2017-12-14] MEDS: Enoxaparin Sodium 40 MG/0.4 ML SYRINGE SC SCH (08:47)
[2017-12-14] MEDS: Floranex Packet PO SCH (08:48)
[2017-12-14] MEDS: Cyanocobalamin (Vitamin B-12) 1,000 MCG TAB PO SCH (08:50)
[2017-12-14] MEDS: DULoxetine 30 MG CAP PO SCH (08:50)
[2017-12-14] MEDS: Famotidine 20 MG TAB PO SCH ×2 (08:51→20:41)
[2017-12-14] MEDS: Aspirin 325 mg Enteric Coated Tablet PO SCH (08:51)
[2017-12-14] MEDS: Potassium Chloride 20 MEQ TAB PO SCH ×2 (08:51→17:25)
[2017-12-14] MEDS: Ferrous Sulfate 325 MG TAB PO SCH (08:52)
[2017-12-14] MEDS: Allopurinol 100 MG TAB PO SCH (08:52)
[2017-12-14] MEDS: Folic Acid 1 MG TAB PO SCH (08:52)
[2017-12-14] MEDS: Furosemide 40 MG TAB PO SCH (08:53)
[2017-12-14] MEDS: Fluticasone Propionate Nasal Spray 16 gm Bottle NASAL SCH (08:55)
[2017-12-14] MEDS: Carvedilol 25 MG TAB PO SCH ×2 (08:55→17:25)
[2017-12-14] MEDS: Docusate 100 MG CAP PO SCH ×2 (08:55→20:23)
[2017-12-14] MEDS: Acetaminophen 325 MG TAB PO PRN (20:14)
[2017-12-14] MEDS: Latanoprost 0.005% Ophth Soln 2.5 ml Bottle EA EYE SCH (20:14)
[2017-12-14] MEDS: Atorvastatin Calcium 10 MG TAB PO SCH (20:14)
[2017-12-14] MEDS: Amlodipine 5 MG TAB PO SCH (20:14)
[2017-12-14] MEDS: Lisinopril 20 MG TAB PO SCH (20:15)
[2017-12-15] MEDS: Acetaminophen 325 MG TAB PO PRN (05:35)
[2017-12-15 05:58] LABS: ALT (SGPT) 10 U/L (8-55); AST (SGOT) 14 U/L (5-34); Alkaline Phosphatase 68 U/L (40-150); Anion Gap 15 mmol/L (10-20); BUN (Urea Nitrogen) 19 mg/dL (9.8-20.1); Bilirubin, Total 0.6 mg/dL (0.2-1.2); Calc. Creatinine Clearance 70 mL/min (70-130); Calcium 9.3 mg/dL (7.8-10.44); Carbon Dioxide 27 mmol/L (23-31); Chloride 104 mmol/L (98-107); Estimated GFR-MDRD 59; Globulin 2.7 g/dL (2.4-3.5); Glucose 118 mg/dL (83-110); Protein, Total 5.7 g/dL (6.0-8.3); Sodium 142 mmol/L (136-145)
[2017-12-15 08:21] LABS: Bilirubin Negative (Negative); Blood, Urine Trace (Negative); Clarity Clear (Clear); Glucose, Urine (Dipstick) Negative (Negative); Leukocyte Negative (Negative); Nitrite Negative (Negative); Protein, Urine (Dipstick) > or equal to 300 mg/dL (Neg-Trace); Urobilinogen 0.2 mg/dL (0.2-1.0); pH, Urine 7.5 (5.0-9.0)
[2017-12-15 08:27] LABS: RBC/HPF 0-3 HPF (0-3)
[2017-12-15 08:28] LABS: Squamous Epithelial 0-3 HPF (0-3)
[2017-12-15] MEDS: Allopurinol 100 MG TAB PO SCH (09:38)
[2017-12-15] MEDS: Carvedilol 25 MG TAB PO SCH ×2 (09:38→17:19)
[2017-12-15] MEDS: Potassium Chloride 20 MEQ TAB PO SCH ×2 (09:38→17:19)
[2017-12-15] MEDS: Floranex Packet PO SCH (09:38)
[2017-12-15] MEDS: Ferrous Sulfate 325 MG TAB PO SCH (09:38)
[2017-12-15] MEDS: Cyanocobalamin (Vitamin B-12) 1,000 MCG TAB PO SCH (09:39)
[2017-12-15] MEDS: DULoxetine 30 MG CAP PO SCH (09:40)
[2017-12-15] MEDS: Furosemide 40 MG TAB PO SCH (09:40)
[2017-12-15] MEDS: Folic Acid 1 MG TAB PO SCH (09:40)
[2017-12-15] MEDS: Aspirin 325 mg Enteric Coated Tablet PO SCH (09:41)
[2017-12-15] MEDS: Enoxaparin Sodium 40 MG/0.4 ML SYRINGE SC SCH (09:41)
[2017-12-15] MEDS: Famotidine 20 MG TAB PO SCH ×2 (09:41→21:01)
[2017-12-15] MEDS: Fluticasone Propionate Nasal Spray 16 gm Bottle NASAL SCH (09:42)
[2017-12-15] MEDS: Docusate 100 MG CAP PO SCH (09:44)
[2017-12-15 11:10] VITALS: BMI 38.6
[2017-12-15] MEDS: cloNIDine 0.1 MG TAB PO PRN (17:22)
[2017-12-15] MEDS: Latanoprost 0.005% Ophth Soln 2.5 ml Bottle EA EYE SCH (21:00)
[2017-12-15] MEDS: Lisinopril 20 MG TAB PO SCH (21:01)
[2017-12-15] MEDS: Atorvastatin Calcium 10 MG TAB PO SCH (21:02)
[2017-12-15] MEDS: Loratadine 10 MG TAB PO PRN (21:04)
[2017-12-15] MEDS: Amlodipine 5 MG TAB PO SCH (21:07)
[2017-12-16] MEDS: Docusate 100 MG CAP PO SCH ×3 (00:31→22:04)
[2017-12-16 07:56] LABS: Hemoglobin 11.2 g/dL (12.0-16.0); Platelet Count 231 thou/uL (130-400)
[2017-12-16] MEDS: Enoxaparin Sodium 40 MG/0.4 ML SYRINGE SC SCH (08:45)
[2017-12-16] MEDS: Fluticasone Propionate Nasal Spray 16 gm Bottle NASAL SCH (08:46)
[2017-12-16] MEDS: Floranex Packet PO SCH (08:47)
[2017-12-16] MEDS: Furosemide 40 MG TAB PO SCH (08:47)
[2017-12-16] MEDS: Allopurinol 100 MG TAB PO SCH (08:48)
[2017-12-16] MEDS: Cyanocobalamin (Vitamin B-12) 1,000 MCG TAB PO SCH (08:48)
[2017-12-16] MEDS: Famotidine 20 MG TAB PO SCH ×2 (08:48→22:04)
[2017-12-16] MEDS: DULoxetine 30 MG CAP PO SCH (08:48)
[2017-12-16] MEDS: Potassium Chloride 20 MEQ TAB PO SCH ×2 (08:49→17:10)
[2017-12-16] MEDS: Folic Acid 1 MG TAB PO SCH (08:49)
[2017-12-16] MEDS: Aspirin 325 mg Enteric Coated Tablet PO SCH (08:49)
[2017-12-16] MEDS: Ferrous Sulfate 325 MG TAB PO SCH (08:50)
[2017-12-16] MEDS: Carvedilol 25 MG TAB PO SCH ×2 (08:50→17:10)
[2017-12-16] MEDS: Acetaminophen 325 MG TAB PO PRN ×3 (09:07→22:03)
[2017-12-16] MEDS: Latanoprost 0.005% Ophth Soln 2.5 ml Bottle EA EYE SCH (22:02)
[2017-12-16] MEDS: Amlodipine 5 MG TAB PO SCH (22:03)
[2017-12-16] MEDS: Loratadine 10 MG TAB PO PRN (22:03)
[2017-12-16] MEDS: Lisinopril 20 MG TAB PO SCH (22:04)
[2017-12-16] MEDS: Atorvastatin Calcium 10 MG TAB PO SCH (22:04)
[2017-12-17] MEDS: Acetaminophen 325 MG TAB PO PRN (05:09)
[2017-12-17] MEDS: Allopurinol 100 MG TAB PO SCH (08:55)
[2017-12-17] MEDS: Enoxaparin Sodium 40 MG/0.4 ML SYRINGE SC SCH (08:55)
[2017-12-17] MEDS: Furosemide 40 MG TAB PO SCH (08:55)
[2017-12-17] MEDS: Cyanocobalamin (Vitamin B-12) 1,000 MCG TAB PO SCH (08:55)
[2017-12-17] MEDS: Docusate 100 MG CAP PO SCH ×2 (08:56→21:58)
[2017-12-17] MEDS: Folic Acid 1 MG TAB PO SCH (08:56)
[2017-12-17] MEDS: DULoxetine 30 MG CAP PO SCH (08:56)
[2017-12-17] MEDS: Potassium Chloride 20 MEQ TAB PO SCH ×2 (08:56→17:44)
[2017-12-17] MEDS: Ferrous Sulfate 325 MG TAB PO SCH (08:57)
[2017-12-17] MEDS: Carvedilol 25 MG TAB PO SCH ×2 (08:57→17:44)
[2017-12-17] MEDS: Aspirin 325 mg Enteric Coated Tablet PO SCH (08:57)
[2017-12-17] MEDS: Famotidine 20 MG TAB PO SCH ×2 (08:57→21:58)
[2017-12-17] MEDS: Floranex Packet PO SCH (08:57)
[2017-12-17] MEDS: Fluticasone Propionate Nasal Spray 16 gm Bottle NASAL SCH (09:06)
[2017-12-17] MEDS: cloNIDine 0.1 MG TAB PO PRN (17:44)
[2017-12-17] MEDS: Lisinopril 20 MG TAB PO SCH (21:57)
[2017-12-17] MEDS: Atorvastatin Calcium 10 MG TAB PO SCH (21:58)
[2017-12-17] MEDS: Latanoprost 0.005% Ophth Soln 2.5 ml Bottle EA EYE SCH (21:58)
[2017-12-17] MEDS: Amlodipine 5 MG TAB PO SCH (21:58)
[2017-12-18 07:02] LABS: Hemoglobin 9.3 g/dL (12.0-16.0); Platelet Count 215 thou/uL (130-400)
[2017-12-18] MEDS: Allopurinol 100 MG TAB PO SCH (09:32)
[2017-12-18] MEDS: Floranex Packet PO SCH (09:32)
[2017-12-18] MEDS: Furosemide 40 MG TAB PO SCH (09:33)
[2017-12-18] MEDS: DULoxetine 30 MG CAP PO SCH (09:33)
[2017-12-18] MEDS: Carvedilol 25 MG TAB PO SCH ×2 (09:34→18:26)
[2017-12-18] MEDS: Famotidine 20 MG TAB PO SCH ×2 (09:34→21:19)
[2017-12-18] MEDS: Aspirin 325 mg Enteric Coated Tablet PO SCH (09:34)
[2017-12-18] MEDS: Ferrous Sulfate 325 MG TAB PO SCH (09:34)
[2017-12-18] MEDS: Folic Acid 1 MG TAB PO SCH (09:34)
[2017-12-18] MEDS: Cyanocobalamin (Vitamin B-12) 1,000 MCG TAB PO SCH (09:34)
[2017-12-18] MEDS: Potassium Chloride 20 MEQ TAB PO SCH ×2 (09:34→18:26)
[2017-12-18] MEDS: Docusate 100 MG CAP PO SCH ×2 (09:35→21:21)
[2017-12-18] MEDS: Enoxaparin Sodium 40 MG/0.4 ML SYRINGE SC SCH (09:36)
[2017-12-18] MEDS: Fluticasone Propionate Nasal Spray 16 gm Bottle NASAL SCH (09:36)
[2017-12-18] MEDS: cloNIDine 0.1 MG TAB PO PRN (18:35)
[2017-12-18] MEDS: Latanoprost 0.005% Ophth Soln 2.5 ml Bottle EA EYE SCH (21:19)
[2017-12-18] MEDS: Atorvastatin Calcium 10 MG TAB PO SCH (21:20)
[2017-12-18] MEDS: Lisinopril 20 MG TAB PO SCH (21:20)
[2017-12-18] MEDS: Amlodipine 5 MG TAB PO SCH (21:20)
[2017-12-19 05:56] VITALS: BP 137/64; TEMP 98.2
[2017-12-19 07:54] LABS: Anion Gap 16 mmol/L (10-20); BUN (Urea Nitrogen) 25 mg/dL (9.8-20.1); Calc. Creatinine Clearance 70 mL/min (70-130); Calcium 9.5 mg/dL (7.8-10.44); Carbon Dioxide 25 mmol/L (23-31); Chloride 105 mmol/L (98-107); Estimated GFR-MDRD 59; Glucose 113 mg/dL (83-110); Potassium 4.1 mmol/L (3.5-5.1); Sodium 142 mmol/L (136-145)
[2017-12-19] MEDS: DULoxetine 30 MG CAP PO SCH (09:12)
[2017-12-19] MEDS: Aspirin 325 mg Enteric Coated Tablet PO SCH (09:12)
[2017-12-19] MEDS: Floranex Packet PO SCH (09:12)
[2017-12-19] MEDS: Folic Acid 1 MG TAB PO SCH (09:13)
[2017-12-19] MEDS: Carvedilol 25 MG TAB PO SCH (09:13)
[2017-12-19] MEDS: Famotidine 20 MG TAB PO SCH (09:13)
[2017-12-19] MEDS: Ferrous Sulfate 325 MG TAB PO SCH (09:13)
[2017-12-19] MEDS: Allopurinol 100 MG TAB PO SCH (09:13)
[2017-12-19] MEDS: Furosemide 40 MG TAB PO SCH (09:13)
[2017-12-19] MEDS: Potassium Chloride 20 MEQ TAB PO SCH (09:14)
[2017-12-19] MEDS: Enoxaparin Sodium 40 MG/0.4 ML SYRINGE SC SCH (09:14)
[2017-12-19] MEDS: Docusate 100 MG CAP PO SCH (09:14)
[2017-12-19] MEDS: Cyanocobalamin (Vitamin B-12) 1,000 MCG TAB PO SCH (09:14)
[2017-12-19] MEDS: Fluticasone Propionate Nasal Spray 16 gm Bottle NASAL SCH (09:14)
[2017-12-20] MEDS ORDERED: cloNIDine 0.1mg/24 Hour PATCH TD SCH (09:00)
--- NOTE | 2017-12-28 21:07 | DIS ---
DATE OF DISCHARGE: 12/19/2017 ADMISSION DIAGNOSES: 1. Deconditioning. 2. Hypoventilation syndrome. 3. Sleep apnea. 4. Congestive heart failure. 5. Hypertension. 6. Obesity. DISCHARGE DIAGNOSES: 1. Severe deconditioning, improved. 2. Sleep apnea, stable. 3. Hypoventilation syndrome secondary to obesity, improved with CPAP utilization. 4. Hypertension, controlled. 5. Congestive heart failure, stable. BRIEF SUMMARY OF HISTORY AND PHYSICAL: The patient is an extremely pleasant 82-year-old -Amer [place] female with a very extensive medical history over the last several months. She spent almost one -month period from September to October at [facility] after having altered men afshan status and severe deconditioning. She was admitted to [facility] for reha bilitative services on 11/04/2017 and had been improving somewhat. See previous hospital records, bu t then she was found on the morning of 11/25/2017 to be with altered mental status, extremely somnole nt, with slurred speech and generalized weakness. She was transferred to the emergency room and then sent to [facility] for evaluation and treatment. At that time, her mental st atus seemed to improve significantly. She was diagnosed with altered mental status secondary to obes ity-related hypoventilation syndrome and was started on CPAP device. Patient apparently had been pre scribed CPAP for sleep apnea previously, but had not been compliant and not using the device for an e xtended period of time. Since the patient was back to her baseline, but still severely deconditioned , she was readmitted to [facility] on 11/26/2017. She became compliant with the CPAP device over the next several weeks, she significantly improved, was able to get out of bed o n. She used a walker with ambulation and had overall increased strength. She was found to have volu me-overload symptoms which were treated more appropriately with increased Lasix dosage. She initiall y was on Lovenox for DVT prophylaxis, but once she became more mobile, that was discontinued. She wa s stable enough to be discharged to home with home health on 12/19/2017. DISCHARGE INSTRUCTIONS: Her discharge activity will be as tolerated. She will have Home Health for physical therapy and occu pational therapy. Her diet was a low-sodium diet. She was prescribed CPAP device which significantly helped her during her hospitalization and she reported willingness to be compliant with it. DISCHARGE MEDICATIONS: Her new medications on discharge were clonidine patch 0.1 transdermal every 7 days due to labile blood pressure. Her furosemide was increased to 80 mg daily. She is to start po tassium 20 mEq daily and lisinopril 20 mg p.o. q.p.m. for uncontrolled hypertension. She will contin ue her routine medications including Cymbalta 60 mg daily, allopurinol 300 mg daily, Norvasc 10 mg da teresita, Lipitor 10 mg at bedtime, famotidine 20 mg p.o. b.i.d., Tylenol p.r.n. pain, albuterol neb treat ments as needed, aspirin 325 mg daily, Coreg 25 mg twice a day, vitamin D daily, Colace 100 mg twice daily, folic acid daily, Imdur 60 mg daily, minoxidil 2.5 mg daily, tramadol 50 mg p.o. q.4 hours p.r .n. pain, ferrous sulfate 325 mg daily with breakfast for anemia. Dulcolax p.r.n. for constipation. FOLLOWUP: She will follow up with PCP in [facility]. Patient would like to actually stop ida long her doctor in [place] and would like to see a doctor in [place]. It was recommended that she see Dr Malina Huffman or Dr. Dell Tamez. Patient had been seen by Dr. Huffman during her hospital stay and would like to follow up with her.
== END 2017-12-19 10:45 | disposition home health service (06) | DRG 948 ==
LOC: BURMED 17:10
PROVIDERS: ADMIT Family Medicine; ATTEND Family Medicine
DX: R53.1 Weakness (principal); I11.0 Hypertensive heart disease with heart failure; E66.2 Morbid (severe) obesity with alveolar hypoventilation; I50.9 Heart failure, unspecified; Z68.41 Body mass index [BMI] 40.0-44.9, adult; G47.30 Sleep apnea, unspecified; Z86.73 Personal history of transient ischemic attack (TIA), and cerebral infarction without residual deficits; M19.90 Unspecified osteoarthritis, unspecified site; R32 Unspecified urinary incontinence
CPT/HCPCS: 36415; 71046; 80048; 80053; 81001; 82565; 85014; 85018; 85025; 85049; 87086; 94640; A4353; G8978-GP-CL; G8979-GP-CJ; G8987-GO-CL; G8988-GO-CJ; J1650; Q0162

== ENCOUNTER 2018-07-07 12:00 | Outpatient (CLI) | payer MEDICARE ==
--- NOTE | 2018-07-07 19:32 | RAD ---
LEFT HIP TWO VIEWS: 07/07/18 No definite fracture was seen. There is a little bit of a step-off where the femoral neck meets the f emoral head. I cannot exclude a fracture here, but this film does not definitively confirm one. The a cetabulum appears normal and the adjacent pubic ring appears intact. IMPRESSION: Equivocal findings in the subcapital region of the left hip. Depending upon the presentation and cour se, further imaging may be needed. A CT might be able to shows an injury if present, an MRI would be even more sensitive. Findings discussed with Dr. Huffman at approximately 1315 on 07/07/18. POS: HOME
--- NOTE | 2018-07-07 19:35 | RAD ---
PELVIS 07/07/18 No gross pelvic fractures were seen. The SI joints were symmetrical and the arcuate lines of the sacr um appear intact. The symphysis shows no widening or off-set and the pubic rings appear intact. The h ip joints are equal in width. As stated on the hip film, there is a little bit of a step-off between the left femoral neck and head, however, it really does not appear substantially different than the r ight hip. Thus there is no definite fracture seen here on this study; however, if the patient's pain is convincing or clinical course of concern, then further imaging such as CT or MRI should be conside red to better assess the hips. IMPRESSION: No definite acute findings. Findings discussed with Dr. Huffman at approximately 1315 on 07/07/18. POS: HOME
== END 2018-07-07 12:01 | disposition home or self-care (01) ==
LOC: BURRAD 12:00
PROVIDERS: ATTEND Family Medicine
DX: M25.552 Pain in left hip (principal)
CPT/HCPCS: 72170

== ENCOUNTER 2018-07-14 09:22 | Outpatient (CLI) | payer MEDICARE ==
--- NOTE | 2018-07-15 07:20 | CT ---
CT LEFT HIP: Date: 07/14/[address] of the hip was done following trauma. Initial plain films did not show a fracture. This lorri dy is done in follow-up. Axial slices were acquired, and coronal and sagittal reconstructions were do ne. FINDINGS: No fracture was appreciated in the proximal femur, surrounding acetabulum, or visible portions of the adjacent bony pelvis. Femoral neck appeared intact and there did not appear to be any undue soft tis karthik swelling around the femoral neck. The main finding of the study, however, is an area of increased density in the fatty portions of the left buttocks consistent with a soft tissue hematoma from a recent trauma. The underlying gluteal mus cles appeared normal. IMPRESSION: 1. No evidence of hip fracture. I would not that a 1 digit percentage of hip fractures are sometimes not visible on CT are only are seen on MRI. Nothing on the current images arouse suspicion of a hip fracture. 2. Soft tissue hematoma in the soft tissues of the left buttocks. POS: HOME
== END 2018-07-14 09:23 | disposition home or self-care (01) ==
LOC: BURCT 09:22
PROVIDERS: ATTEND Family Medicine
DX: M25.552 Pain in left hip (principal); S30.0XXA Contusion of lower back and pelvis, initial encounter

== ENCOUNTER 2019-09-20 14:46 | Emergency (ER) | payer MEDICARE | END 2019-09-20 15:31 | disposition home or self-care (01) | LOC: BURERS 14:46 | DX: L03.011 Cellulitis of right finger (principal); J45.909 Unspecified asthma, uncomplicated; E78.00 Pure hypercholesterolemia, unspecified; F32.9 Major depressive disorder, single episode, unspecified; I11.0 Hypertensive heart disease with heart failure; I50.9 Heart failure, unspecified; D64.9 Anemia, unspecified | CPT/HCPCS: 99283 ==